=== PATIENT | male | born 1945 | race Caucasian/White ===

== ENCOUNTER 2020-04-16 10:54 | Emergency (ER) | payer MEDICARE, BC ==
[2020-04-16] MEDS ORDERED: predniSONE 20 MG Tab PO ONE (11:55)
[2020-04-16] MEDS ORDERED: Ketorolac 10 MG Tab PO ONE (11:55)
--- NOTE | 2020-04-16 12:03 | EDM.PDOC ---
ED HPI GENERAL MEDICAL PROBLEM - General Chief Complaint: Upper Extremity Injury/Pain Stated Complaint: ARM PAIN/SWELLING Time Seen by Provider: 04/16/20 11:23 Source of Information: Reports: Patient History Limitations: Reports: No Limitations - History of Present Illness INITIAL COMMENTS - FREE TEXT/NARRATIVE: Two week history of gradually worsening right forearm/wrist pain. More swollen around hand/fingers today. 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 Denies any other change in activity. No injuries/cuts/insect bites. Has not had this issue before. Sometimes gets a little numbness in tips of 3rd and 4th finger. Letting arm hand down at his side at rest improves discomfort. Ice helps with swelling and pain. Has not taken any NSAIDs or Tylenol. - Related Data Allergies Allergy/AdvReac Type Severity Reaction Status Date / Time aspirin Allergy Abdominal Verified 04/16/20 10:55 Pain Penicillins Allergy Giddiness Verified 04/16/20 10:55 Home Meds: Home Meds Tamsulosin HCl [Flomax] 0.4 mg PO BEDTIME 04/16/20 [History] Past Medical History Genitourinary History: Reports: BPH Endocrine/Metabolic History: Reports: Obesity/BMI 30+ Social & Family History - Tobacco Use Smoking Status *Q: Unknown Ever Smoked Review of Systems - Review of Systems Review Of Systems: Comprehensive ROS is negative, except as noted in HPI. ED EXAM, GENERAL - Physical Exam Exam: See Below Exam Limited By: No Limitations General Appearance: Alert, WD/WN, No Apparent Distress Eye Exam: Bilateral Eye: EOMI, PERRL Ears: Hearing Grossly Normal Throat/Mouth: Normal Lips, Normal Voice, No Airway Compromise Head: Atraumatic, Normocephalic Neck: Supple Respiratory/Chest: No Respiratory Distress Peripheral Pulses: 2+: Radial (R) Extremities: Other (Exam of hands shows mild swelling of right hand compared to left. Thumb,2nd/3rd digit slightly more swollen than 4th and 5th. Skin intact. No drainage/blisters/rash. Range of motion in affected hand/fingers/wrist intact. Mild swelling medial wrist that does not extend upwards to involve rest of forearm. Tender with palpation over soft tissue/extensor tendons of right hand that reproduces patient's pain complaint. No crepitus noted in tendons when patient moves fingers/wrist. ) Neurological: Alert, Oriented, Normal Cognition, No Motor/Sensory Deficits Psychiatric: Normal Affect, Normal Mood Skin Exam: Warm, Dry, Intact, Normal Color. No: Ecchymosis, Erythema, Increased Warmth, Lymphangitis, Mottled, Pallor, Petechiae, Rash, Wound/Incision , Zoster-Like Rash Course - Vital Signs Last Recorded V/S: Last Vital Signs Temp 36.9 C 04/16/20 10:55 Pulse 74 04/16/20 10:55 Resp 18 04/16/20 10:55 BP 146/69 H 04/16/20 10:55 Pulse Ox 95 04/16/20 10:55 - Orders/Labs/Meds Orders: Active Orders 24 hr Category Date Time Status Wrist 2V Rt [CR] Stat Exams 04/16/20 10:56 Ordered Labs: Laboratory Tests 04/16/20 Range/Units 11:05 WBC 8.6 (4.0-10.2) K/uL RBC 4.65 (4.33-5.41) M/uL Hgb 14.1 (13.1-16.8) g/dL Hct 43.6 (39.0-49.0) % MCV 93.8 (84.0-98.0) fL MCH 30.3 (28.2-33.3) pg MCHC 32.3 (31.7-36.0) g/dL RDW 12.9 (11.2-14.1) % Plt Count 257 (150-350) K/uL Neut % (Auto) 72.9 (45.0-80.0) % Lymph % (Auto) 14.9 (10.0-50.0) % [place] % (Auto) 7.6 (2.0-14.0) % Eos % (Auto) 4.3 (0.0-5.0) % Baso % (Auto) 0.3 (0.0-2.0) % Neut # (Auto) 6.29 (1.40-7.00) K/uL Lymph # (Auto) 1.29 (0.50-3.50) K/uL [place] # (Auto) 0.66 (0.00-1.00) K/uL Eos # (Auto) 0.37 (0.00-0.50) K/uL Baso # (Auto) 0.03 (0.00-0.20) K/uL Meds: Medications Discontinued Medications Generic Name Dose Route Start Last Admin Trade Name Linda PRN Reason Stop Dose Admin Ketorolac Tromethamine 10 mg 04/16/20 11:55 Toradol PO 04/16/20 11:56 ONETIME ONE Prednisone 60 mg 04/16/20 11:55 Prednisone PO 04/16/20 11:56 ONETIME ONE - Re-Assessments/Exams Free Text/Narrative Re-Assessment/Exam: 04/16/20 12:14 Xray of wrist unremarkable. CBC showed normal WBC. Suspect overuse injury/ tendonitis. Does not appear consistent with infection/clot or vascular issue. US unavailable at our site today. Patient did not wish to go to [place] today to formally rule out blood clot. Does not appear to be consistent with gout based on history and exam. Patient has appointment tomorrow with [facility] for his knees. It was recommended that he have them look at the wrist tomorrow and decide if further imaging is needed and discuss further treatment options. He declined wrist brace. 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 Single dose of Prednisone and Toradol PO ordered. Ice/rest/Tylenol can be used to help with discomfort. He was advised to use caution with NSAIDS given his age and potential renal issues. He does not usually use that class of medication as it upsets his stomach. No additional Toradol was dispensed. Patient agreeable with plan. Departure - Departure Time of Disposition: 11:56 Disposition: Home, Self-Care 01 Condition: Good Clinical Impression: Right wrist pain - Discharge Information *PRESCRIPTION DRUG MONITORING PROGRAM REVIEWED*: Not Applicable *COPY OF PRESCRIPTION DRUG MONITORING REPORT IN PATIENT BRIDGET: Not Applicable Instructions: Wrist Pain, Adult, [id number] Referrals: Tali Nash PA [Primary Care Provider] - Forms: ED Department Discharge Additional Instructions: Avoid grabbing/lifting with the affected hand. Ice/rest to help with pain and sweling. We gave you medication to help with the inflammation and pain today. Have Ortho evaluate it at your appointment tomorrow and see what they recommend for additional treatment. If you start to notice swelling worsening up the forearm then you will need to get rechecked. Follow up otherwise as needed if you have additional problems/ concerns. OK to use Tylenol to help with the discomfort. Sepsis Event Note - Evaluation Sepsis Screening Result: No Definite Risk - Focused Exam Vital Signs: Vital Signs Temp Pulse Resp BP Pulse Ox 04/16/20 10:55 36.9 C 74 18 146/69 H 95 Date Exam was Performed: 04/16/20 Time Exam was Performed: 12:05 - My Orders Last 24 Hours: My Active Orders 04/16/20 10:56 Wrist 2V Rt [CR] Stat - Assessment/Plan Last 24 Hours: My Active Orders 04/16/20 10:56 Wrist 2V Rt [CR] Stat
== END 2020-04-16 12:10 | disposition home or self-care (01) ==
LOC: LL.ED 10:54
DX: M25.531 Pain in right wrist (principal); N40.0 Benign prostatic hyperplasia without lower urinary tract symptoms; E66.9 Obesity, unspecified; Z88.8 Allergy status to other drugs, medicaments and biological substances; Z88.0 Allergy status to penicillin
CPT/HCPCS: 36415; 73100-RT; 85025; 99283; A9270-GY; J7512

== ENCOUNTER 2020-06-08 09:58 | Observation (INO) | payer MEDICARE, BC ==
[2020-06-08] MEDS ORDERED: Ondansetron 4 MG/2 ML SDV IVPUSH ONE (10:13)
[2020-06-08] MEDS ORDERED: Famotidine 20 MG/2 ML SDV IVPUSH ONE (10:13)
[2020-06-08] MEDS ORDERED: Pantoprazole 40 MG Vial IVPUSH ONE (10:13)
--- NOTE | 2020-06-08 10:13 | EDM.PDOC ---
ED HPI GENERAL MEDICAL PROBLEM - General Chief Complaint: Gastrointestinal Problem Stated Complaint: constipation Time Seen by Provider: 06/08/20 10:10 Source of Information: Reports: Patient, Family (), Old Records ([facility] chart/EMR) History Limitations: Reports: No Limitations - History of Present Illness INITIAL COMMENTS - FREE TEXT/NARRATIVE: The patient was brought to the emergency room via private automobile by his for severe exacerbation of his previous chronic constipation after right total knee arthroplasty on 06/04/20 at . He was placed on postoperative narcotics, which he did discontinue yesterday. Home health is in place with patient receiving a Fleet's enema and a half a bottle of magnesium citrate yesterday with no results. The patient did have a normal bowel movement on 06/03 prior to his surgery with no bowel movement since that time. Patient does have some intermittent nausea, including an emesis yesterday evening with last emesis at about 8:30 a.m. this morning. He complains of diffuse 4/10 abdominal cramping with borderline heartburn type symptoms. No recent history of hematemesis, diarrhea, melena, gross hematochezia, or any food intolerance, including fatty foods, etc.. He denies any gross hematuria, colic, or other UTI symptoms. The patient also denies any recent fever, cough, wheezing, dyspnea, etc.. The patient denies any chest pain/pressure, heart flutter, dizziness, orthostasis, orthopnea, diaphoresis, paresthesias, recent decreased exercise tolerance, or any other anginal-type symptoms. Onset: Gradual Onset Date: 06/07/20 Duration: Constant, Getting Worse. No: Resolved Prior to Arrival Location: Reports: Abdomen. Denies: Head, Neck, Chest, Back, Pelvis, Upper Extremity, Left, Upper Extremity, Right, Radiates to Quality: Reports: Pressure, Same as Previous Episode Severity: Mild Improves with: Reports: None Worsens with: Reports: None Context: Reports: Other (As above). Denies: Sick Contact, Trauma Associated Symptoms: Reports: Nausea/Vomiting. Denies: Confusion, Chest Pain, Cough, Diaphoresis, Fever/Chills, Headaches, Loss of Appetite, Malaise, Rash, Seizure, Shortness of Breath, Syncope, Weakness Treatments [employer]: Reports: Other Medication(s) (As above) Abdomen Pain Score (Numeric/FACES): 4 - Related Data Allergies Allergy/AdvReac Type Severity Reaction Status Date / Time aspirin AdvReac Abdominal Verified 06/08/20 11:07 Pain Penicillins AdvReac Giddiness Verified 06/08/20 11:07 Home Meds: Home Meds Tamsulosin HCl [Flomax] 0.4 mg PO BEDTIME 04/16/20 [History] Acetaminophen [Acetaminophen Extra Strength] 2 tab PO Q6HR PRN 06/08/20 [History] Apixaban [Eliquis] 2.5 mg PO BID 06/08/20 [History] Celecoxib [CeleBREX] 200 mg PO DAILY 06/08/20 [History] Cetirizine [ZyrTEC] 1 tab PO DAILY 06/08/20 [History] Magnesium Citrate [Citrate of Magnesia] 30 ml PO DAILY 06/08/20 [History] Non-Formulary Medication [NF Drug] 1 injection SUBCUT ASDIRECTED 06/08/20 [History] Sennosides/Docusate Sodium [Senna Plus 8.6-50 mg Tablet] 1 tab PO BID 06/08/20 [History] Sulfamethoxazole/Trimethoprim [Sulfamethoxazole-Tmp Ds Tablet] 1 tab PO BID 06/08/20 [History] oxyCODONE HCl [Roxicodone] 1 - 2 tab PO Q4HR PRN 06/08/20 [History] Past Medical History HEENT History: Reports: Allergic Rhinitis, Hard of Hearing, Impaired Vision, Other (See Below). Denies: Cataract, Glaucoma, Macular Degeneration, Otitis Media Other HEENT History: He wears glasses. Severe bilateral presbycusis with suboptimal bilateral hearing aide therapy. Cardiovascular History: Reports: High Cholesterol. Denies: Afib, Aneurysm, Arrhythmia, Blood Clots/VTE/DVT, CAD, Cardiomyopathy, Heart Murmur, Hypertension, FL, PVD, Syncope Respiratory History: Reports: Intubation, Previous. Denies: Asthma, Bronchitis, Recurrent, COPD, Intubation, Difficult, PE, Pneumonia, Recurrent, Pneumothorax, Sleep Apnea, TB Gastrointestinal History: Reports: Chronic Constipation, Hemorrhoids. Denies: Bowel Obstruction, Celiac Disease, Cholelithiasis, Colon Polyp, Fecal Incontin ence, Gastritis, GERD, Hepatitis, Inflammatory Bowel Disease, Irritable Bowel Syndrome, Jaundice, Pancreatitis, PUD Genitourinary History: Reports: BPH. Denies: Acute Renal Failure, Chronic Renal Insuffiency, Renal Calculus, Retention, Urinary, STD, Urinary Incontinence, UTI, Recurrent Musculoskeletal History: Reports: Arthritis, Back Pain, Chronic, Fracture, Osteoarthritis, Other (See Below). Denies: Amputation, Gout, Neck Pain, Chronic, RA, SLE Other Musculoskeletal History: Phalangeal fracture of digit #1 of the left foot in his 30s. Previous left ankle fracturedate unknown. 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 Neurological History: Reports: None. Denies: Cerebral Aneurysms, Concussion, CVA, Headaches, Chronic, Head Trauma, Migraines, MS, Neuropathy, Peripheral, Parkinson's, Seizure, TIA Psychiatric History: Reports: None. Denies: Abuse, Victim of, ADD, ADHD, Addiction, Psych Hospitalization(s), Psychosis, PTSD, Suicide Attempt, Suicidal Ideation Endocrine/Metabolic History: Reports: Diabetes, Type II, Obesity/BMI 30+, Other (See Below). Denies: Diabetes, Type I, Diabetes Mellitus, Type 3c, Hypothyroidism, IDDM Other Endocrine/Metabolic History: Prediabetes with no current therapy. Hematologic History: Reports: None. Denies: Anemia, Blood Transfusion(s), Iron Deficiency Immunologic History: Reports: None. Denies: AIDS, HIV, SLE Oncologic (Cancer) History: Reports: None. Denies: Basal Cell Carcinoma, Colon, Hodgkin's Lymphoma, Leukemia, Lymphoma, Malignant Melanoma, Non-Hodgkin's Lymphoma, Prostate, Squamous Cell Carcinoma Dermatologic History: Reports: Venous Stasis Dermatitis. Denies: Eczema, Psoriasis - Infectious Disease History Infectious Disease History: Reports: Chicken Pox, Measles, Mumps. Denies: C- Difficile, Helicobacter Pylori, Meningitis, Mononucleosis, MRSA, Pertussis (Whooping Cough), Rheumatic Fever, Rubella, Scarlet Fever, Shingles, TB, VRE - Past Surgical History Head Surgeries/Procedures: Reports: None HEENT Surgical History: Reports: Oral Surgery, Other (See Below). Denies: Adenoidectomy, Cataract Surgery, Eye Surgery, Laser Surgery, LASIK, Myringotomy w Tube(s), Naso-Sinus Surgery, Tonsillectomy Other HEENT Surgeries/Procedures: Complete teeth extraction. Cardiovascular Surgical History: Reports: None. Denies: Varicose Respiratory Surgical History: Reports: None. Denies: Thoracentesis GI Surgical History: Reports: Colonoscopy, Other (See Below). Denies: Appendectomy, Cholecystectomy, EGD, Hernia, Abdominal, Hernia, Inguinal, Hernia Repair/Other, Polypectomy Other GI Surgeries/Procedures: Colonoscopy on 03/11/12. Male Surgical History: Reports: None. Denies: Circumcision, TURP- Transurethral Resection of Prostate, Vasectomy Endocrine Surgical History: Reports: None. Denies: Thyroid Biopsy Neurological Surgical History: Reports: None. Denies: C-Spine, Discectomy, Laminectomy, Lumbar Spine, Sacral Spine, Spinal Fusion, Thoracic Spine, Vertebroplasty Musculoskeletal Surgical History: Reports: None, Joint Replacement, Knee Replacement, Other (See Below). Denies: Arthroscopic Procedure, Carpal Tunnel, Ganglion Cyst, ORIF, Shoulder Surgery Other Musculoskeletal Surgeries/Procedures:: Right total knee arthroplasty on 06/04/20. Oncologic Surgical History: Reports: None Dermatological Surgical History: Reports: None - Past Imaging History Past Imaging History: Reports: DEXA Scan (10/12/12.), MRI (Lumbar spine on 10/12/12.) Social & Family History - Family History HEENT: Reports: None. Denies: Glaucoma, Macular Degeneration, Retinal Detachment Cardiac: Reports: Blood Clots/VTE/DVT, CAD, FL, Other (See Below). Denies: Afib, Aneurysm, Arrhythmia, Bypass, Cardiomyopathy, Heart Failure, Heart Murmur, High Cholesterol, Hypertension, Pacemaker, PVD/COD, Syncope Other Cardiac Family History: Father with fatal FL in his 80s. Mother with fatal DVT versus PE likely secondary to her breast cancer at age 75. Respiratory: Reports: PE, Other (See Below). Denies: Asthma, COPD, Pneumothorax, Sleep Apnea Other Respiratory Family Hisory: Mother with probable fatal PE as above. GI: Reports: None. Denies: Celiac Disease, Cholelithiasis, Colon Polyps, GERD, GI bleed, Inflammatory Bowel Disease, Irritable Bowel Syndrome, PUD : Reports: None. Denies: Dialysis, Renal Calculus, Renal Disease/Insufficiency OBGYN: Reports: None. Denies: Endometriosis, Recurrent Spontaneous Musculoskeletal: Reports: None. Denies: Gout, RA, SLE Neurological: Reports: None, Other (See Below). Denies: Alzheimers Disease, Cerebral Aneurysms, CVA, Dementia, Migraines, MS, Parkinson's, Seizure, TIA Other Neurological Family History: Organic brain syndrome in maternal aunt and maternal uncle. Psychiatric: Reports: None. Denies: Abuse, Victim of, ADD, ADHD, Anxiety, Depression, Psych Hospitalization(s), PTSD, Suicide Attempt Endocrine/Metabolic: Reports: Diabetes, type II, IDDM, Other (See Below). Den ies: Diabetes, Gestational, Diabetes, Type I, Diabetes Mellitus, Type 3c, Hypothyroidism Other Endocrine/Metabolic Family History: Father with IDDM. Hematologic: Reports: None. Denies: Anemia, SLE Immunologic: Reports: None. Denies: AIDS, HIV, SLE Dermatologic: Reports: None. Denies: Eczema, Psoriasis Oncologic: Reports: Breast, Other (See Below). Denies: Colon, Hodgkin's Lymphoma, Leukemia, Lymphoma, Non-Hodgkin's Lymphoma, Prostate, Skin Other Oncologic Family History: Mother with breast cancer at about age 75. Maternal aunt with fatal breast cancer in her 70s. - Tobacco Use Smoking Status *Q: Current Every Day Smoker Tobacco Use Within Last Twelve Months: Snuff/Dip Years of Tobacco use: 46 Packs/Tins Daily: 0.4 Packs/Tins Daily Comment: Started chewing tobacco at age 28 with average use of 1/3 cans per day with previous cigarette use. Used Tobacco, but Quit: No Smoking Cessation Information Provided To Patient: Yes Second Hand Smoke Exposure: No Second Hand Smoke Education Provided: No - Caffeine Use Caffeine Use: Reports: Coffee (One cup per day), Soda (Very occasional). Denies: Energy Drinks, Tea - Alcohol Use Alcohol Use History: Yes Days Per Week of Alcohol Use: 2 Number of Drinks Per Day: 6 Number of Drinks Per Day Comment: Usually beer. No previous DWIs, problems with alcohol abuse, etc. Total Drinks Per Week: 12 - Recreational Drug Use Recreational Drug Use: No Drug Use in Last 12 Months: No Recreational Drug Type: Denies: Amphetamines (Speed), Cocaine, Heroin, Inhalants (Glues, Solvents, Aerosols), LSD (Acid), Marijuana/Hashish, Methamphetamine, Morphine, Oxycodone - Living Situation & Occupation Living situation: Reports: (1999, stepchildren), with Family () Occupation: Employed ([employer]) ED ROS GENERAL - Review of Systems Review Of Systems: Comprehensive ROS is negative, except as noted in HPI. ED EXAM, GI/ABD - Physical Exam Exam: See Below Exam Limited By: No Limitations General Appearance: Alert, WD/WN, Moderate Distress Eyes: Bilateral: Normal Appearance (No nystagmus. Patient wearing glasses), EOMI Ears: Normal External Exam, Hearing Loss (Suboptimal bilateral hearing aid therapy) Nose: Normal Inspection, Normal Mucosa, No Blood Throat/Mouth: Normal Inspection, Normal Lips, Normal Gums, Normal Oropharynx, Normal Voice, No Airway Compromise. No: Normal Teeth (Complete dentures uppers and lowers), Dysphagia, Perioral Cyanosis Head: Atraumatic, Normocephalic. No: Facial Swelling, Facial Tenderness, Sinus Tenderness Neck: Supple, Non-Tender, Full Range of Motion, Carotid Bruit (Mild bilateral carotid bruits). No: Lymphadenopathy (L), Lymphadenopathy (R), Thyromegaly Respiratory/Chest: No Respiratory Distress, Lungs Clear, Normal Breath Sounds, No Accessory Muscle Use, Chest Non-Tender. No: Pleural Rub, Retractions Cardiovascular: Normal Peripheral Pulses, Regular Rate, Rhythm, No Gallop, No JVD, No Murmur, No Rub. No: No Edema (Dependent edema as below), Gallop/S3, Gallop/S4, Friction Rub GI/Abdominal Exam: Normal Bowel Sounds, No Organomegaly, No Distention, No Abnormal Bruit, No Mass, Tender (Mild diffuse palpation pain), Other (Obese). No: Guarding, Rigid, Rebound (Male) Exam: Deferred Rectal (Males) Exam: Normal Rectal Tone, BPH (Moderate nonnodular), Heme - Stool, Hemorrhoids (Grade 2 internal/external). No: Fecal Impaction, Prostate Nodule, Rectal Fissure, Tenderness Back Exam: Normal Inspection, Full Range of Motion. No: CVA Tenderness (L), CVA Tenderness (R), Muscle Spasm Extremities: Pedal Edema (+1 bilateral pedal/pretibial edema) greater than left with moderate venous stasis dermatitis in the anterior tibial regions bilaterally), Joint Swelling (Normal postoperative right knee), Leg Pain (Normal postoperative in the right knee with decreased range of motion and dry dressing in place), Limited Range of Motion (Right knee as above). No: Los's Sign, Increased Warmth, Redness Neurological: Alert, Oriented, CN II-XII Intact, Normal Cognition, Normal Reflexes (Negative Babinski's), No Motor/Sensory Deficits. No: Normal Gait (Secondary to knee surgery) Psychiatric: Normal Affect, Normal Mood Skin Exam: Wound/Incision (As above), Other (Venous stasis dermatitis as above). No: Diaphoretic, Erythema, Increased Warmth, Petechiae Lymphatic: No Adenopathy Course - Vital Signs Last Recorded V/S: Last Vital Signs Temp 36.5 C 06/08/20 10:00 Pulse 92 06/08/20 10:00 Resp 18 06/08/20 10:00 BP 146/76 H 06/08/20 10:00 Pulse Ox 94 L 06/08/20 10:00 Vital Signs - 24 hr 06/08/20 10:00 Temperature [ 36.5 C Temporal] Pulse, 92 Peripheral [ Pulse Oximetry] Respiratory 18 Rate Blood Pressure 146/76 H [Right Upper Arm] O2 Sat by Pulse 94 L Oximetry - Orders/Labs/Meds Orders: Active Orders 24 hr Category Date Time Status Peripheral IV Care [RC] . DIRECTED Care 06/08/20 10:14 Ordered Nothing Per Oral Diet [DIET] Diet 06/08/20 Breakfast Ordered Abdomen Series w Chest 1V [CR] Stat Exams 06/08/20 10:14 Ordered Sodium Chloride 0.9% [Saline Flush] Med 06/08/20 10:13 Ordered 10 ml FLUSH ASDIRECTED PRN Obtain Past Medical Record [OM.PC] Urgent Oth 06/08/20 10:14 Ordered Peripheral IV Insertion Adult [OM.PC] Stat Oth 06/08/20 10:14 Ordered Resuscitation Status Stat Resus Stat 06/08/20 10:13 Ordered Medication Orders Sodium Chloride (Saline Flush) 10 ml FLUSH ASDIRECTED PRN PRN Reason: Keep Vein Open Last Admin: 06/08/20 10:30 Dose: 10 ml Documented by: Admin: 06/08/20 10:18 Dose: 10 ml Documented by: CARMELITA Labs: Laboratory Tests 06/08/20 06/08/20 06/08/20 Range/Units 10:25 10:25 10:25 WBC 13.2 H (4.0-10.2) K/uL RBC 3.95 L (4.33-5.41) M/uL Hgb 12.3 L D (13.1-16.8) g/dL Hct 37.6 L (39.0-49.0) % MCV 95.2 (84.0-98.0) fL MCH 31.1 (28.2-33.3) pg MCHC 32.7 (31.7-36.0) g/dL RDW 13.9 (11.2-14.1) % Plt Count 332 D (150-350) K/uL Neut % (Auto) 81.5 H (45.0-80.0) % Lymph % (Auto) 8.6 L (10.0-50.0) % Converse % (Auto) 9.0 (2.0-14.0) % Eos % (Auto) 0.7 (0.0-5.0) % Baso % (Auto) 0.2 (0.0-2.0) % Neut # (Auto) 10.73 H (1.40-7.00) K/uL Lymph # (Auto) 1.13 (0.50-3.50) K/uL Converse # (Auto) 1.18 H (0.00-1.00) K/uL Eos # (Auto) 0.09 (0.00-0.50) K/uL Baso # (Auto) 0.02 (0.00-0.20) K/uL PT 10.0 (9.5-12.0) SEC INR 1.0 APTT 27.2 (24.5-32.8) SEC Sodium (136-145) mmol/L Potassium (3.5-5.1) mmol/L Chloride (98-107) mmol/L Carbon Dioxide (21.0-32.0) mmol/L BUN (7-18) mg/dL Creatinine (0.51-1.17) mg/dL Est Cr Clr Drug Dosing Estimated GFR (MDRD) mL/min Glucose (74-106) mg/dL Lactic Acid (0.4-2.0) mmol/L Uric Acid (2.6-7.2) mg/dL Calcium (8.5-10.1) mg/dL Magnesium (1.8-2.4) mg/dL Total Bilirubin (0.2-1.0) mg/dL Direct Bilirubin (0.0-0.2) mg/dL Indirect Bilirubin mg/dL AST (15-37) U/L ALT (12-78) U/L Alkaline Phosphatase (46-116) IU/L Total Protein (6.4-8.2) g/dL Albumin (3.4-5.0) g/dL Amylase 17 L (25-115) U/L Lipase (73-393) U/L 06/08/20 06/08/20 06/08/20 Range/Units 10:25 10:25 10:25 WBC (4.0-10.2) K/uL RBC (4.33-5.41) M/uL Hgb (13.1-16.8) g/dL Hct (39.0-49.0) % MCV (84.0-98.0) fL MCH (28.2-33.3) pg MCHC (31.7-36.0) g/dL RDW (11.2-14.1) % Plt Count (150-350) K/uL Neut % (Auto) (45.0-80.0) % Lymph % (Auto) (10.0-50.0) % Converse % (Auto) (2.0-14.0) % Eos % (Auto) (0.0-5.0) % Baso % (Auto) (0.0-2.0) % Neut # (Auto) (1.40-7.00) K/uL Lymph # (Auto) (0.50-3.50) K/uL Converse # (Auto) (0.00-1.00) K/uL Eos # (Auto) (0.00-0.50) K/uL Baso # (Auto) (0.00-0.20) K/uL PT (9.5-12.0) SEC INR APTT (24.5-32.8) SEC Sodium 138 (136-145) mmol/L Potassium 4.0 (3.5-5.1) mmol/L Chloride 98 (98-107) mmol/L Carbon Dioxide 28.4 (21.0-32.0) mmol/L BUN 16 (7-18) mg/dL Creatinine 0.87 (0.51-1.17) mg/dL Est Cr Clr Drug Dosing TNP Estimated GFR (MDRD) > 60 mL/min Glucose 189 H (74-106) mg/dL Lactic Acid 2.0 (0.4-2.0) mmol/L Uric Acid 5.1 (2.6-7.2) mg/dL Calcium 9.0 (8.5-10.1) mg/dL Magnesium 2.0 (1.8-2.4) mg/dL Total Bilirubin 1.4 H 1.4 H (0.2-1.0) mg/dL Direct Bilirubin 0.3 H (0.0-0.2) mg/dL Indirect Bilirubin 1.1 mg/dL AST 22 (15-37) U/L ALT 30 (12-78) U/L Alkaline Phosphatase 52 (46-116) IU/L Total Protein 7.2 (6.4-8.2) g/dL Albumin 2.9 L (3.4-5.0) g/dL Amylase (25-115) U/L Lipase 58 L (73-393) U/L Meds: Medications Generic Name Dose Route Start Last Admin Trade Name Freq PRN Reason Stop Dose Admin Sodium Chloride 10 ml 06/08/20 10:13 06/08/20 10:30 Saline Flush FLUSH 10 ml ASDIRECTED PRN Administration Keep Vein Open Discontinued Medications Generic Name Dose Route Start Last Admin Trade Name Freq PRN Reason Stop Dose Admin Famotidine 40 mg 06/08/20 10:13 06/08/20 10:18 Pepcid IVPUSH 06/08/20 10:14 40 mg ONETIME ONE Administration Ondansetron HCl 4 mg 06/08/20 10:13 06/08/20 10:18 Zofran IVPUSH 06/08/20 10:14 4 mg ONETIME ONE Administration Pantoprazole Sodium 40 mg 06/08/20 10:13 06/08/20 10:18 Protonix Iv IVPUSH 06/08/20 10:14 40 mg ONETIME ONE Administration - Radiology Interpretation Free Text/Narrative:: Acute abdominal x-rays are somewhat suboptimal secondary to patient's habitus and recent surgery with overall poor inspiratory film. Possible mild cardiomegaly and COPD changes with no pneumothorax, pulmonary infiltrates, CHF, etc. Moderate diffuse stool with moderate nonspecific diffuse bowel gaseous distention with no free air, ileus, obstruction, etc.. Telephone consultation from the radiologist at [facility] in [place] possible developing po stoperative ileus by his review. Departure - Departure Time of Disposition: 11:30 Disposition: Refer to Observation Condition: Good Clinical Impression: Abdominal pain, Constipation, Hyperlipidemia, Osteoarthritis, Diabetes mellitus, Tobacco abuse counseling, Anemia, Hyperbilirubinemia, Hypoalbuminemia - Discharge Information *PRESCRIPTION DRUG MONITORING PROGRAM REVIEWED*: Not Applicable *COPY OF PRESCRIPTION DRUG MONITORING REPORT IN PATIENT BRIDGET: Not Applicable Referrals: Tali Nash PA [Primary Care Provider] - Forms: ED Department Discharge Care Plan Goals: See plan. Sepsis Event Note (ED) - Focused Exam Vital Signs: Vital Signs Temp Pulse Resp BP Pulse Ox 06/08/20 10:00 36.5 C 92 18 146/76 H 94 L - Problem List & Annotations (1) Abdominal pain SNOMED Code(s): 99914655 Code(s): R10.9 - UNSPECIFIED ABDOMINAL PAIN Status: Acute Priority: High Onset Date: ~06/07/20 Annotation/Comment:: Significant exacerbation of his previous note chronic constipation secondary to postoperative narcotic use, which has been discontinued as above. High-dose IV Pepcid and IV Protonix were given as GI prophylaxis with no previous history of GERD, etc. Note mild leukocytosis and postoperative anemia with normal lactic acid level. Various therapeutic options were discussed with the patient and his , who are requesting treatment of the patient in observation status for further treatment. Initiate IV Rocephin and IV Flagyl shortly after admission. Abdominal checks with vitals. Questionable beginning postoperative ileus as above. Qualifiers: Abdominal location: generalized Qualified Code(s): R10.84 - Generalized abdominal pain (2) Constipation SNOMED Code(s): 74647566 Code(s): K59.00 - CONSTIPATION, UNSPECIFIED Status: Chronic Priority: Medium Annotation/Comment:: As above. Magnesium citrate/MiraLAX on admission with soapsuds enema depending on his clinical course. Qualifiers: Constipation type: slow transit constipation Qualified Code(s): K59.01 - Slow transit constipation (3) Diabetes mellitus SNOMED Code(s): 94473546 Code(s): E11.9 - TYPE 2 DIABETES MELLITUS WITHOUT COMPLICATIONS Status: Chronic Priority: Medium Annotation/Comment:: No current medical therapy. Glycosylated hemoglobin in the a.m. Weight loss in moderation advisable. Continue to observe closely by his regular provider. Qualifiers: Diabetes mellitus type: type 2 Diabetes mellitus senior living insulin use: without termite treater use Diabetes mellitus complication status: without complication Qualified Code(s): E11.9 - Type 2 diabetes mellitus without complications (4) Hyperlipidemia SNOMED Code(s): 51848112 Code(s): E78.5 - HYPERLIPIDEMIA, UNSPECIFIED Status: Chronic Priority: Medium Annotation/Comment:: Weight loss in moderation advisable. Continue to observe closely by his regular provider. Qualifiers: Hyperlipidemia type: unspecified Qualified Code(s): E78.5 - Hyperlipidemia, unspecified (5) Osteoarthritis SNOMED Code(s): 252810832 Code(s): M19.90 - UNSPECIFIED OSTEOARTHRITIS, UNSPECIFIED SITE Status: Chronic Priority: Medium Annotation/Comment:: Note status post right total knee arthroplasty on 06/04/20 with otherwise stable arthritic complaints. Qualifiers: Osteoarthritis location: multiple joints Osteoarthritis type: primary Qualified Code(s): M89.49 - Other hypertrophic osteoarthropathy, multiple sites (6) Tobacco abuse counseling SNOMED Code(s): 344721642, 370821043, 449345871 Code(s): Z71.6 - TOBACCO ABUSE COUNSELING Status: Chronic Priority: Medium Annotation/Comment:: The patient was counseled on chewing tobacco complications and the use of Nicorette gum with tobacco cessation strongly encouraged with information to be provided at time of discharge. (7) Anemia SNOMED Code(s): 303197378 Code(s): D64.9 - ANEMIA, UNSPECIFIED Status: Acute Priority: Medium Onset Date: 06/08/20 Annotation/Comment:: Mild postoperative anemia. No evidence of acute GI bleed. Observe for now. No blood transfusion required after recent knee surgery. Qualifiers: Anemia type: other cause Other causes of anemia: other cause, not classified Qualified Code(s): D64.89 - Other specified anemias (8) Hyperbilirubinemia SNOMED Code(s): 47696832 Code(s): E80.6 - OTHER DISORDERS OF BILIRUBIN METABOLISM Status: Acute Priority: Medium Onset Date: 06/08/20 Annotation/Comment:: Gilbert's syndrome. Observe for now. (9) Hypoalbuminemia SNOMED Code(s): 431456800 Code(s): E88.09 - OTH DISORDERS OF PLASMA-PROTEIN METABOLISM, NEC Status: Acute Priority: Medium Onset Date: 06/08/20 Annotation/Comment:: Observe for now. Consider high protein Glucerna supplements as snacks, however note current obesity. - Problem List Review Problem List Initiated/Reviewed/Updated: Yes - My Orders Last 24 Hours: My Active Orders 06/08/20 Breakfast Nothing Per Oral Diet [DIET] 06/08/20 10:13 Sodium Chloride 0.9% [Saline Flush] 10 ml FLUSH ASDIRECTED PRN Resuscitation Status Stat 06/08/20 10:14 Peripheral IV Care [RC] . DIRECTED Abdomen Series w Chest 1V [CR] Stat Obtain Past Medical Record [OM.PC] Urgent Peripheral IV Insertion Adult [OM.PC] Stat - Assessment/Plan Admission H&P: Please use this note as an admission H&P Last 24 Hours: My Active Orders 06/08/20 Breakfast Nothing Per Oral Diet [DIET] 06/08/20 10:13 Sodium Chloride 0.9% [Saline Flush] 10 ml FLUSH ASDIRECTED PRN Resuscitation Status Stat 06/08/20 10:14 Peripheral IV Care [RC] . DIRECTED Abdomen Series w Chest 1V [CR] Stat Obtain Past Medical Record [OM.PC] Urgent Peripheral IV Insertion Adult [OM.PC] Stat Assessment:: As above Plan: As above. Extensive precautions were given to the patient and his , who are in agreement with the treatment plan. The patient's condition is stable enough f or observation status and general supervision.
[2020-06-08] MEDS: Sodium Chloride 0.9% 10 ML Syringe FLUSH PRN ×3 (10:18→22:23)
[2020-06-08 10:50] LABS: PTT,PARTIAL THROMBOPLSTIN TIME 27.2 SEC (24.5-32.8)
[2020-06-08 10:59] LABS: CHLORIDE,CL 98 mmol/L (98-107); SODIUM,NA 138 mmol/L (136-145)
[2020-06-08] MEDS ORDERED: Ondansetron 4 MG/2 ML SDV IVPUSH PRN (11:38)
[2020-06-08] MEDS ORDERED: Magnesium Citrate Solution 296 ML Bottle PO ONE (11:42)
[2020-06-08] MEDS ORDERED: Polyethylene Glycol 3350 Powder 17 GM Packet PO ONE (11:42)
[2020-06-08] MEDS ORDERED: Non-Formulary Medication 1 Each SUBCUT SCH (11:45)
[2020-06-08] MEDS: cefTRIAXone 1 GM in Sodium Chloride 0.9% 100 ML IV SCH (14:00)
[2020-06-08] MEDS: Sodium Chloride 0.9% 10 ML Syringe FLUSH SCH ×2 (14:01→19:23)
[2020-06-08] MEDS: metroNIDAZOLE/Normal Saline 500 MG in Premix Bag 1 BAG IV SCH ×2 (14:35→22:24)
[2020-06-08] MEDS: Sulfamethoxazole/Trimethoprim 800-160 MG Tab PO SCH (17:30)
[2020-06-08] MEDS: Tamsulosin 0.4 MG Cap.ER PO SCH (19:23)
[2020-06-08] MEDS ORDERED: Temazepam 15 MG Cap PO PRN (20:00)
[2020-06-08] MEDS: Pantoprazole 40 MG Vial IVPUSH SCH (22:23)
[2020-06-09] MEDS: cefTRIAXone 1 GM in Sodium Chloride 0.9% 100 ML IV SCH ×2 (01:45→14:27)
[2020-06-09] MEDS: metroNIDAZOLE/Normal Saline 500 MG in Premix Bag 1 BAG IV SCH ×3 (06:20→22:54)
[2020-06-09] MEDS: Acetaminophen 325 MG Tab PO PRN ×3 (06:23→19:39)
[2020-06-09] MEDS: Sulfamethoxazole/Trimethoprim 800-160 MG Tab PO SCH ×2 (07:21→17:21)
[2020-06-09] MEDS: Cetirizine 10 MG Tab PO SCH (07:21)
[2020-06-09] MEDS: Sodium Chloride 0.9% 10 ML Syringe FLUSH SCH ×4 (07:23→19:39)
[2020-06-09 08:04] LABS: HEMOGLOBIN A1C 6.9 % (4.3-5.7)
--- NOTE | 2020-06-09 08:33 | PCM.PN ---
- General Info Date of Service: 06/09/20 Admission Dx/Problem (Free Text): 1. Abdominal pain with possible postoperative ileus 2. Chronic constipation 3. Osteoarthritis with status post recent right TKA Functional Status: Reports: Pain Controlled, Incentive Spirometry. Denies: Tolerating Diet (Nothing by mouth), Ambulating, Urinating, New Symptoms Pain Score: 1 (Normal postoperative right knee pain) - Review of Systems General: Denies: Fever (Afebrile this morning with maximum temperature of 37.3), Weakness, Fatigue, Malaise, Chills, Night Sweats, Appetite HEENT: Reports: No Symptoms. Denies: Dysphasia, Ear Pain, Eye Pain, Headaches, Post Nasal Drip, Sinus Congestion, Sore Throat, Rhinitis, Visual Changes Pulmonary: Reports: No Symptoms. Denies: Shortness of Breath, Pleuritic Chest Pain, Cough, Sputum, Hemoptysis, Wheezing Cardiovascular: Reports: Edema (Improved dependent). Denies: Chest Pain, Palpitations, Dyspnea on Exertion, Orthopnea, Lightheadedness Gastrointestinal: Reports: Constipation (No bowel movement), Flatus (Mild). Denies: Abdominal Pain, Decreased Appetite, Diarrhea, Difficulty Swallowing, Hematochezia, Melena, Nausea, Vomiting Genitourinary: Reports: No Symptoms. Denies: Dysuria, Frequency, Burning, Pain, Urgency, Incontinence, Hematuria, Retention, Flank Pain Musculoskeletal: Reports: Leg Pain (Postoperative right knee pain), Joint Pain (As above), Joint Swelling (Postoperative right knee effusion). Denies: Neck Pain, Shoulder Pain, Arm Pain, Back Pain Skin: Reports: Other (Right knee surgical site healing well with dry dressing). Denies: Diaphoresis, Bruising, Rash Neurological: Reports: Difficulty Walking (Postoperativenormal). Denies: Confusion, Headache, Numbness, Paresthesia, Tingling, Gait Disturbance Psychiatric: Reports: No Symptoms. Denies: Confusion, Depression, Anxiety, Agitation, Cravings, Hallucinations - Patient Data Vitals - Most Recent: Last Vital Signs Temp 36.6 C 06/09/20 07:18 Pulse 75 06/09/20 07:18 Resp 16 06/09/20 07:18 BP 123/70 06/09/20 07:18 Pulse Ox 95 06/09/20 07:18 Vital Signs - 24 hr 07/06/08/20 06/08/20 10:00 11:38 15:38 Temperature [ 36.5 C 36.8 C 37.1 C Temporal] Pulse, 92 87 80 Peripheral [ Pulse Oximetry] Respiratory 18 18 18 Rate Blood Pressure 146/76 H 126/62 130/59 L [Right Upper Arm] O2 Sat by Pulse 94 L 97 93 L Oximetry 06/08/20 06/09/20 06/09/20 19:24 00:00 04:00 Temperature [ 37.3 C 36.9 C 36.8 C Temporal] Pulse, 72 72 86 Peripheral [ Pulse Oximetry] Respiratory 14 16 16 Rate Blood Pressure 142/63 H 134/75 139/66 [Right Upper Arm] O2 Sat by Pulse 93 L 95 95 Oximetry 06/09/20 07:18 Temperature [ 36.6 C Temporal] Pulse, 75 Peripheral [ Pulse Oximetry] Respiratory 16 Rate Blood Pressure 123/70 [Right Upper Arm] O2 Sat by Pulse 95 Oximetry Weight - Most Recent: 133.991 kg I&O - Last 24 Hours: Intake & Output 06/08/20 06/09/20 06/09/20 22:59 06:59 14:59 Output Total 700 Balance -700 Imaging Impressions - Last 24 Hours: Acute abdominal x-rays shows progression of his possible beginning postoperative ileus with no free air. Stable elevated right hemidiaphragm with somewhat prominent aortic arch with mild centralized CHF and Aramis B lines. No pulmonary infiltrates noted. Lab Results Last 24 Hours: Laboratory Results - last 24 hr 06/08/20 06/08/20 06/08/20 Range/Units 10:25 10:25 10:25 WBC 13.2 H (4.0-10.2) K/uL RBC 3.95 L (4.33-5.41) M/uL Hgb 12.3 L D (13.1-16.8) g/dL Hct 37.6 L (39.0-49.0) % MCV 95.2 (84.0-98.0) fL MCH 31.1 (28.2-33.3) pg MCHC 32.7 (31.7-36.0) g/dL RDW 13.9 (11.2-14.1) % Plt Count 332 D (150-350) K/uL Neut % (Auto) 81.5 H (45.0-80.0) % Lymph % (Auto) 8.6 L (10.0-50.0) % [place] % (Auto) 9.0 (2.0-14.0) % Eos % (Auto) 0.7 (0.0-5.0) % Baso % (Auto) 0.2 (0.0-2.0) % Neut # (Auto) 10.73 H (1.40-7.00) K/uL Lymph # (Auto) 1.13 (0.50-3.50) K/uL [place] # (Auto) 1.18 H (0.00-1.00) K/uL Eos # (Auto) 0.09 (0.00-0.50) K/uL Baso # (Auto) 0.02 (0.00-0.20) K/uL PT 10.0 (9.5-12.0) SEC INR 1.0 APTT 27.2 (24.5-32.8) SEC Sodium (136-145) mmol/L Potassium (3.5-5.1) mmol/L Chloride (98-107) mmol/L Carbon Dioxide (21.0-32.0) mmol/L BUN (7-18) mg/dL Creatinine (0.51-1.17) mg/dL Est Cr Clr Drug Dosing Estimated GFR (MDRD) mL/min Glucose (74-106) mg/dL Hemoglobin A1c (4.3-5.7) % Lactic Acid (0.4-2.0) mmol/L Uric Acid (2.6-7.2) mg/dL Calcium (8.5-10.1) mg/dL Magnesium (1.8-2.4) mg/dL Total Bilirubin (0.2-1.0) mg/dL Direct Bilirubin (0.0-0.2) mg/dL Indirect Bilirubin mg/dL AST (15-37) U/L ALT (12-78) U/L Alkaline Phosphatase (46-116) IU/L Total Protein (6.4-8.2) g/dL Albumin (3.4-5.0) g/dL Amylase 17 L (25-115) U/L Lipase (73-393) U/L Specimen Type Urine Color Urine Appearance Urine pH (5.0-9.0) Ur Specific Felch (1.005-1.030) Urine Protein (NEGATIVE) mg/dL Urine Glucose (UA) (NEGATIVE) mg/dL Urine Ketones (NEGATIVE) mg/dL Urine Occult Blood (NEGATIVE) Urine Nitrite (NEGATIVE) Urine Bilirubin (NEGATIVE) Urine Urobilinogen (0.2-1.0) E.U./dL Ur Leukocyte Esterase (NEGATIVE) Urine RBC /HPF Urine WBC /HPF Ur Epithelial Cells /LPF Amorphous Sediment (0/HPF) /HPF Urine Bacteria (NONE TO FEW) /HPF Urine Mucus (NEGATIVE) /LPF 06/08/20 06/08/20 06/08/20 Range/Units 10:25 10:25 10:25 WBC (4.0-10.2) K/uL RBC (4.33-5.41) M/uL Hgb (13.1-16.8) g/dL Hct (39.0-49.0) % MCV (84.0-98.0) fL MCH (28.2-33.3) pg MCHC (31.7-36.0) g/dL RDW (11.2-14.1) % Plt Count (150-350) K/uL Neut % (Auto) (45.0-80.0) % Lymph % (Auto) (10.0-50.0) % [place] % (Auto) (2.0-14.0) % Eos % (Auto) (0.0-5.0) % Baso % (Auto) (0.0-2.0) % Neut # (Auto) (1.40-7.00) K/uL Lymph # (Auto) (0.50-3.50) K/uL [place] # (Auto) (0.00-1.00) K/uL Eos # (Auto) (0.00-0.50) K/uL Baso # (Auto) (0.00-0.20) K/uL PT (9.5-12.0) SEC INR APTT (24.5-32.8) SEC Sodium 138 (136-145) mmol/L Potassium 4.0 (3.5-5.1) mmol/L Chloride 98 (98-107) mmol/L Carbon Dioxide 28.4 (21.0-32.0) mmol/L BUN 16 (7-18) mg/dL Creatinine 0.87 (0.51-1.17) mg/dL Est Cr Clr Drug Dosing TNP Estimated GFR (MDRD) > 60 mL/min Glucose 189 H (74-106) mg/dL Hemoglobin A1c (4.3-5.7) % Lactic Acid 2.0 (0.4-2.0) mmol/L Uric Acid 5.1 (2.6-7.2) mg/dL Calcium 9.0 (8.5-10.1) mg/dL Magnesium 2.0 (1.8-2.4) mg/dL Total Bilirubin 1.4 H 1.4 H (0.2-1.0) mg/dL Direct Bilirubin 0.3 H (0.0-0.2) mg/dL Indirect Bilirubin 1.1 mg/dL AST 22 (15-37) U/L ALT 30 (12-78) U/L Alkaline Phosphatase 52 (46-116) IU/L Total Protein 7.2 (6.4-8.2) g/dL Albumin 2.9 L (3.4-5.0) g/dL Amylase (25-115) U/L Lipase 58 L (73-393) U/L Specimen Type Urine Color Urine Appearance Urine pH (5.0-9.0) Ur Specific Fel[place] (1.005-1.030) Urine Protein (NEGATIVE) mg/dL Urine Glucose (UA) (NEGATIVE) mg/dL Urine Ketones (NEGATIVE) mg/dL Urine Occult Blood (NEGATIVE) Urine Nitrite (NEGATIVE) Urine Bilirubin (NEGATIVE) Urine Urobilinogen (0.2-1.0) E.U./dL Ur Leukocyte Esterase (NEGATIVE) Urine RBC /HPF Urine WBC /HPF Ur Epithelial Cells /LPF Amorphous Sediment (0/HPF) /HPF Urine Bacteria (NONE TO FEW) /HPF Urine Mucus (NEGATIVE) /LPF 06/09/20 06/09/20 06/09/20 Range/Units 00:01 07:40 07:40 WBC 11.1 H (4.0-10.2) K/uL RBC 3.78 L (4.33-5.41) M/uL Hgb 11.7 L (13.1-16.8) g/dL Hct 36.6 L (39.0-49.0) % MCV 96.8 (84.0-98.0) fL MCH 31.0 (28.2-33.3) pg MCHC 32.0 (31.7-36.0) g/dL RDW 14.0 (11.2-14.1) % Plt Count 346 (150-350) K/uL Neut % (Auto) 72.4 (45.0-80.0) % Lymph % (Auto) 14.0 (10.0-50.0) % [place] % (Auto) 10.7 (2.0-14.0) % Eos % (Auto) 2.6 (0.0-5.0) % Baso % (Auto) 0.3 (0.0-2.0) % Neut # (Auto) 8.05 H (1.40-7.00) K/uL Lymph # (Auto) 1.56 (0.50-3.50) K/uL [place] # (Auto) 1.19 H (0.00-1.00) K/uL Eos # (Auto) 0.29 (0.00-0.50) K/uL Baso # (Auto) 0.03 (0.00-0.20) K/uL PT (9.5-12.0) SEC INR APTT (24.5-32.8) SEC Sodium (136-145) mmol/L Potassium (3.5-5.1) mmol/L Chloride (98-107) mmol/L Carbon Dioxide (21.0-32.0) mmol/L BUN (7-18) mg/dL Creatinine (0.51-1.17) mg/dL Est Cr Clr Drug Dosing Estimated GFR (MDRD) mL/min Glucose (74-106) mg/dL Hemoglobin A1c 6.9 H (4.3-5.7) % Lactic Acid (0.4-2.0) mmol/L Uric Acid (2.6-7.2) mg/dL Calcium (8.5-10.1) mg/dL Magnesium (1.8-2.4) mg/dL Total Bilirubin (0.2-1.0) mg/dL Direct Bilirubin (0.0-0.2) mg/dL Indirect Bilirubin mg/dL AST (15-37) U/L ALT (12-78) U/L Alkaline Phosphatase (46-116) IU/L Total Protein (6.4-8.2) g/dL Albumin (3.4-5.0) g/dL Amylase (25-115) U/L Lipase (73-393) U/L Specimen Type Urincc Urine Color Dark yellow Urine Appearance Clear Urine pH 7.5 (5.0-9.0) Ur Specific [place] 1.020 (1.005-1.030) Urine Protein Negative (NEGATIVE) mg/dL Urine Glucose (UA) Negative (NEGATIVE) mg/dL Urine Ketones 15 H (NEGATIVE) mg/dL Urine Occult Blood Trace-intact H (NEGATIVE) Urine Nitrite Negative (NEGATIVE) Urine Bilirubin Small H (NEGATIVE) Urine Urobilinogen 0.2 (0.2-1.0) E.U./dL Ur Leukocyte Esterase Negative (NEGATIVE) Urine RBC Not seen /HPF Urine WBC 0-5 /HPF Ur Epithelial Cells Rare /LPF Amorphous Sediment Few (0/HPF) /HPF Urine Bacteria Rare (NONE TO FEW) /HPF Urine Mucus Rare H (NEGATIVE) /LPF [place] Results Last 24 Hours: Microbiology 06/08/20 10:20 Stool Occult Blood ([place]) - Final Stool / Feces NEGATIVE OCCULT BLOOD REFERENCE RANGE: NEGATIVE Urine culture and sensitivity pending Med Orders - Current: Current Medications Acetaminophen (Tylenol) 650 mg PO Q4H PRN PRN Reason: Pain Last Admin: 06/09/20 06:23 Dose: 650 mg Documented by: Cetirizine HCl (Zyrtec) 10 mg PO DAILY [facility] Last Admin: 06/09/20 07:21 Dose: 10 mg Documented by: Famotidine (Pepcid) 20 mg IVPUSH Q12H [facility] Ceftriaxone Sodium 1 gm/ (Sodium Chloride) 100 mls @ 200 mls/hr IV Q12H [facility] Last Admin: 06/09/20 01:45 Dose: 200 mls/hr Documented by: Metronidazole 500 mg/ Premix 100 mls @ 100 mls/hr IV Q8H [facility] Last Admin: 06/09/20 06:20 Dose: 100 mls/hr Documented by: Non-Formulary Medication (Nf Drug) each SUBCUT ASDIRECTED [facility] Ondansetron HCl (Zofran) 4 mg IVPUSH Q6H PRN PRN Reason: Nausea/Vomiting Pantoprazole Sodium (Protonix Iv) 40 mg IVPUSH Q12H [facility] Last Admin: 06/08/20 22:23 Dose: 40 mg Documented by: Senna/Docusate Sodium (Senna Plus) 1 tab PO BID [facility] Last Admin: 06/09/20 07:21 Dose: 1 tab Documented by: Sodium Chloride (Saline Flush) 10 ml FLUSH ASDIRECTED PRN PRN Reason: Keep Vein Open Last Admin: 06/08/20 22:23 Dose: 10 ml Documented by: Sodium Chloride (Saline Flush) 10 ml FLUSH Q12HR [facility] Last Admin: 06/09/20 07:23 Dose: 10 ml Documented by: Tamsulosin HCl (Flomax) 0.4 mg PO BEDTIME [facility] Last Admin: 06/08/20 19:23 Dose: 0.4 mg Documented by: Temazepam (Restoril) 15 mg PO DAILY@2000 PRN PRN Reason: Insomnia Trimethoprim/Sulfamethoxazole (Septra Ds) 1 tab PO BID [facility] Last Admin: 06/09/20 07:21 Dose: 1 tab Documented by: Discontinued Medications Famotidine (Pepcid) 40 mg IVPUSH ONETIME ONE Stop: 06/08/20 10:14 Last Admin: 06/08/20 10:18 Dose: 40 mg Documented by: Ceftriaxone Sodium 1 gm/ (Sodium Chloride) 100 mls @ 200 mls/hr IV Q12H [facility] Metronidazole 500 mg/ Premix 100 mls @ 100 mls/hr IV Q8H [facility] Magnesium Citrate (Citrate Of Magnesia) 0 ml PO ONETIME ONE Stop: 06/08/20 11:43 Last Admin: 06/08/20 13:01 Dose: 296 ml Documented by: Ondansetron HCl (Zofran) 4 mg IVPUSH ONETIME ONE Stop: 06/08/20 10:14 Last Admin: 06/08/20 10:18 Dose: 4 mg Documented by: Pantoprazole Sodium (Protonix Iv) 40 mg IVPUSH ONETIME ONE Stop: 06/08/20 10:14 Last Admin: 06/08/20 10:18 Dose: 40 mg Documented by: Polyethylene Glycol (Miralax) 17 gm PO ONETIME ONE Stop: 06/08/20 11:43 Last Admin: 06/08/20 13:01 Dose: 17 gm Documented by: - Exam Quality Assessment: DVT Prophylaxis (Eliquis). No: Supplemental Oxygen, Urine Catheter, Skin Breakdown, Restraints General: Alert, Oriented, Cooperative, Sedated HEENT: Pupils Equal, Pupils Reactive, EOMI, Mucous Membr. Moist/[place]. No: Scleral Icterus Neck: Supple, Trachea Midline, No JVD, No Thyromegaly. No: Lymphadenopathy, Carotid Bruit Lungs: Normal Respiratory Effort, Rales (Mild bilateral basilar). No: Rhonchi, Rub, Wheezing Cardiovascular: Regular Rate, Regular Rhythm, No Murmurs. No: Gallops, Rubs GI/Abdominal Exam: Normal Bowel Sounds, Soft, Non-Tender, No Organomegaly, No Abnormal Bruit, No Mass, Pelvis Stable, Distended (Mild), Other (Obese). No: Guarding, Rigid, Rebound (Male) Exam: Deferred Back Exam: Normal Inspection, Full Range of Motion. No: CVA Tenderness (L), CVA Tenderness (R), Muscle Spasm Extremities: Pedal Edema (Somewhat improved trace+1 pedal/pretibial edema) than left), Joint Swelling (Right knee consistent with postoperative changes), Leg Pain (Normal postoperative discomfort with range of motion the right knee), Limited Range of Motion (Right knee secondary to recent surgery). No: Los's Sign Peripheral Pulses: 2+: Radial (L), Radial (R), Posterior Tibial (R), Dorsalis Pedis (L) Wound/Incisions: Healing Well, Dressing Dry and Intact, No Drainage Neurological: No New Focal Deficit Psy/Mental Status: Alert, Normal Affect, Normal Mood. No: Agitated, Hallucinations, Withdrawal Symptoms Sepsis Event Note - Evaluation Sepsis Screening Result: No Definite Risk - Focused Exam Vital Signs: Vital Signs Temp Pulse Resp BP Pulse Ox 06/09/20 07:18 36.6 C 75 16 123/70 95 06/09/20 04:00 36.8 C 86 16 139/66 95 06/09/20 00:00 36.9 C 72 16 134/75 95 Date Exam was Performed: 06/09/20 Time Exam was Performed: 09:22 - Problem List & Annotations (1) Abdominal pain SNOMED Code(s): 22763298 Code(s): R10.9 - UNSPECIFIED ABDOMINAL PAIN Status: Acute Priority: High Current Visit: Yes Onset Date: ~06/07/20 Qualifiers: Abdominal location: generalized Qualified Code(s): R10.84 - Generalized abdominal pain Annotation/Comment:: Significant exacerbation of his previous note chronic constipation secondary to postoperative narcotic use, which has been discontinued as above. High-dose IV Pepcid and IV Protonix were given as GI prophylaxis in the emergency room with continuation during this hospitalization, although no previous history of GERD, etc. Note mild leukocytosis on admission with improvement on 06/09. Stable postoperative anemia with normal lactic acid level. Various therapeutic options were discussed in the emergency room with the patient and his , who requested treatment of the patient in observation status for further treatment. Initiateed IV Rocephin and IV Flagyl shortly after admission. Abdominal checks with vitals. Questionable beginning postoperative ileus, which did progress somewhat on 06/09 despite aggressive treatment with MiraLAX and magnesium citrate. CT scan of the abdomen and pelvis with contrast ordered on 06/09 with results pending. Patient will be kept nothing by mouth until these results are obtained. (2) Constipation SNOMED Code(s): 97892717 Code(s): K59.00 - CONSTIPATION, UNSPECIFIED Status: Chronic Priority: Medium Current Visit: Yes Qualifiers: Constipation type: slow transit constipation Qualified Code(s): K59.01 - Slow transit constipation Annotation/Comment:: As above. Magnesium citrate/MiraLAX on admission with repeat dose once CT results of the abdomen are obtained. (3) Diabetes mellitus SNOMED Code(s): 78007669 Code(s): E11.9 - TYPE 2 DIABETES MELLITUS WITHOUT COMPLICATIONS Status: Chronic Priority: Medium Current Visit: Yes Qualifiers: Diabetes mellitus type: type 2 Diabetes mellitus detention insulin use: without detention use Diabetes mellitus complication status: without complication Qualified Code(s): E11.9 - Type 2 diabetes mellitus without complications Annotation/Comment:: Continue current medical therapy. Glycosylated hemoglobin 6.9% on 06/09. Weight loss in moderation advisable. Continue to observe closely by his regular provider. (4) Hyperlipidemia SNOMED Code(s): 32768193 Code(s): E78.5 - HYPERLIPIDEMIA, UNSPECIFIED Status: Chronic Priority: Medium Current Visit: Yes Qualifiers: Hyperlipidemia type: unspecified Qualified Code(s): E78.5 - Hyperlipidemia, unspecified Annotation/Comment:: Weight loss in moderation advisable. Continue to observe closely by his regular provider. (5) Osteoarthritis SNOMED Code(s): 768588883 Code(s): M19.90 - UNSPECIFIED OSTEOARTHRITIS, UNSPECIFIED SITE Status: Chronic Priority: Medium Current Visit: Yes Qualifiers: Osteoarthritis location: multiple joints Osteoarthritis type: primary Qualified Code(s): M89.49 - Other hypertrophic osteoarthropathy, multiple sites Annotation/Comment:: Note status post right total knee arthroplasty on 06/04/20 with otherwise stable arthritic complaints. (6) Tobacco abuse counseling SNOMED Code(s): 773031122, 462732145, 582577979 Code(s): Z71.6 - TOBACCO ABUSE COUNSELING Status: Chronic Priority: Medium Current Visit: Yes Annotation/Comment:: The patient was counseled on chewing tobacco complications and the use of Nicorette gum with tobacco cessation strongly encouraged with information to be provided at time of discharge. (7) Anemia SNOMED Code(s): 939451757 Code(s): D64.9 - ANEMIA, UNSPECIFIED Status: Acute Priority: Medium Current Visit: Yes Onset Date: 06/08/20 Qualifiers: Anemia type: other cause Other causes of anemia: other cause, not classified Qualified Code(s): D64.89 - Other specified anemias Annotation/Comment:: Mild postoperative anemia. No evidence of acute GI bleed. Elevated ferritin level with somewhat decreased iron level and TIBC panel secondary to his hypoalbuminemia. Vitamin B 12 level is normal. Observe for now. No blood transfusion required after recent knee surgery. (8) Hyperbilirubinemia SNOMED Code(s): 87059486 Code(s): E80.6 - OTHER DISORDERS OF BILIRUBIN METABOLISM Status: Acute Priority: Medium Current Visit: Yes Onset Date: 06/08/20 Annotation/Comment:: Gilbert's syndrome. Observe for now. (9) Hypoalbuminemia SNOMED Code(s): 186814485 Code(s): E88.09 - OTH DISORDERS OF PLASMA-PROTEIN METABOLISM, NEC Status: Acute Priority: Medium Current Visit: Yes Onset Date: 06/08/20 Annotation/Comment:: Observe for now. Consider high protein Glucerna supplements as snacks, however note current obesity. (10) CHF (congestive heart failure) SNOMED Code(s): 00908341 Code(s): I50.9 - HEART FAILURE, UNSPECIFIED Status: Acute Priority: Medium Current Visit: Yes Onset Date: 06/09/20 Qualifiers: Heart failure type: unspecified Heart failure chronicity: acute Qualified Code(s): I50.9 - Heart failure, unspecified Annotation/Comment:: Mild CHF by x-rays on 06/09/20. Low-dose IV Lasix initiated on 06/09 with consideration of echocardiogram on an outpatient basis. No chest pain or anginal type symptoms - Problem List Review Problem List Initiated/Reviewed/Updated: Yes - My Orders Last 24 Hours: My Active Orders 06/08/20 Breakfast Nothing Per Oral Diet [DIET] 06/08/20 10:13 Sodium Chloride 0.9% [Saline Flush] 10 ml FLUSH ASDIRECTED PRN Resuscitation Status Stat 06/08/20 10:14 Peripheral IV Care [RC] . DIRECTED Abdomen Series w Chest 1V [CR] Stat Peripheral IV Insertion Adult [OM.PC] Stat 06/08/20 11:38 Communication Order [RC] PER UNIT ROUTINE Height and Weight [RC] DAILY Intake and Output Strict [RC] ASDIRECTED Oxygen Therapy [RC] PRN Pulse Oximetry [RC] ASDIRECTED Up With Assistance [RC] ASDIRECTED Vital Signs [RC] Q4HR CULTURE URINE [RM] Stat OCCULT BLOOD DIAGNOSTIC [OP] Routine Acetaminophen [Tylenol] 650 mg PO Q4H PRN Ondansetron [Zofran] 4 mg IVPUSH Q6H PRN GM Immunization Reflex [OM.PC] Click to Edit 06/08/20 11:39 Communication, Vaccine [RC] PER UNIT ROUTINE Vaccines to be Administered [RC] PER UNIT ROUTINE 06/08/20 11:42 Communication Order [RC] ROUTINE 06/08/20 11:45 Non-Formulary Medication [NF Drug] DOSE each SUBCUT ASDIRECTED 06/08/20 14:00 cefTRIAXone [Rocephin] 1 gm Sodium Chloride 0.9% [Normal Saline] 100 ml IV Q12H 06/08/20 14:30 metroNIDAZOLE/Normal Saline [Flagyl 500 MG in NS 100 ML] 500 mg Premix Bag 1 bag IV Q8H 06/08/20 18:00 Docusate Sodium/Sennosides [Senna Plus] 1 tab PO BID Sulfamethoxazole/Trimethoprim [Septra DS] 1 tab PO BID 06/08/20 20:00 Sodium Chloride 0.9% [Saline Flush] 10 ml FLUSH Q12HR Tamsulosin [Flomax] 0.4 mg PO BEDTIME Temazepam [Restoril] 15 mg PO DAILY@1999 PRN 06/08/20 20:06 Antiembolic Devices [RC] 08,20 KELSEY Hose [Antiembolic Hose] [OM.PC] Routine 06/08/20 23:00 Pantoprazole [ProTONIX IV] 40 mg IVPUSH Q12H 06/09/20 05:11 Abdomen Series w Chest 1V [CR] Routine AMYLASE [CHEM] Routine COMPREHENSIVE METABOLIC PN,CMP [CHEM] Routine FERRITIN [CHEM] Routine IRON/TIBC [CHEM] Routine LIPASE [CHEM] Routine VITAMIN B12 [CHEM] Routine 06/09/20 08:00 Cetirizine [ZyrTEC] 10 mg PO DAILY 06/09/20 08:17 Abdomen Pelvis w Cont [CT] Urgent 06/09/20 11:45 Famotidine [Pepcid] 20 mg IVPUSH Q12H - Assessment Assessment:: As above - Plan Plan:: As above. Extensive precautions were given to the patient, who is in agreement with the treatment plan. Anticipate an additional day of observation care with possible transfer to inpatient/acute care depending on his clinical course.
[2020-06-09 08:35] LABS: CHLORIDE,CL 99 mmol/L (98-107); SODIUM,NA 137 mmol/L (136-145)
[2020-06-09] MEDS: Furosemide 40 MG/4 ML VIAL IVPUSH SCH ×2 (09:28→17:21)
[2020-06-09] MEDS: Potassium Chloride 20 MEQ Tab.ER PO SCH ×2 (09:30→17:21)
[2020-06-09] MEDS: Famotidine 20 MG/2 ML SDV IVPUSH SCH ×2 (10:35→22:53)
[2020-06-09] MEDS: Pantoprazole 40 MG Vial IVPUSH SCH ×2 (10:35→22:53)
[2020-06-09] MEDS ORDERED: Diatrizoate Meglumine/Diatrizoate Sodium 37% 30 ML Bottle PO ONE (10:45)
[2020-06-09] MEDS ORDERED: Iopamidol 612 MG/ML 100 ML Bottle IVPUSH ONE (10:45)
[2020-06-09] MEDS ORDERED: Famotidine 20 MG/2 ML SDV IVPUSH SCH (11:45)
[2020-06-09] MEDS ORDERED: cefTRIAXone 1 GM in Sodium Chloride 0.9% 100 ML IV SCH (12:00)
[2020-06-09] MEDS ORDERED: Polyethylene Glycol 3350 Powder 17 GM Packet PO ONE (12:34)
[2020-06-09] MEDS ORDERED: Magnesium Citrate Solution 296 ML Bottle PO ONE (12:35)
[2020-06-09] MEDS ORDERED: metroNIDAZOLE/Normal Saline 500 MG in Premix Bag 1 BAG IV SCH (13:00)
[2020-06-09] MEDS ORDERED: cefTRIAXone 1 GM Vial ONE (13:16)
[2020-06-09] MEDS: Tamsulosin 0.4 MG Cap.ER PO SCH (19:39)
[2020-06-09] MEDS: Sodium Chloride 0.9% 10 ML Syringe FLUSH PRN (22:55)
[2020-06-10] MEDS: Acetaminophen 325 MG Tab PO PRN ×2 (00:40→07:19)
[2020-06-10] MEDS: cefTRIAXone 1 GM in Sodium Chloride 0.9% 100 ML IV SCH (02:07)
[2020-06-10] MEDS ORDERED: Aluminum Hydroxide/Magnesium Hydroxide/Simethicone Susp 30 ML Cup PO PRN (02:09)
[2020-06-10] MEDS: Sodium Chloride 0.9% 10 ML Syringe FLUSH SCH (07:16)
[2020-06-10] MEDS: Sulfamethoxazole/Trimethoprim 800-160 MG Tab PO SCH (07:19)
[2020-06-10] MEDS: Potassium Chloride 20 MEQ Tab.ER PO SCH (07:19)
[2020-06-10] MEDS: Cetirizine 10 MG Tab PO SCH (07:20)
[2020-06-10] MEDS: metroNIDAZOLE/Normal Saline 500 MG in Premix Bag 1 BAG IV SCH (07:20)
[2020-06-10] MEDS: Furosemide 40 MG/4 ML VIAL IVPUSH SCH (07:20)
[2020-06-10 08:13] LABS: CHLORIDE,CL 101 mmol/L (98-107); SODIUM,NA 139 mmol/L (136-145)
--- NOTE | 2020-06-10 09:13 | PCM.DCSUM1 ---
Discharge Summary - Hospital Course HPI Initial Comments: See emergency room note/admission H&P Brief History: See emergency room note/admission H&P Diagnosis: Stroke: No Modified Archer Scale: No Symptoms at All Modified Archer Scale Score: 0 - Discharge Data Discharge Date: 06/10/20 Discharge Disposition: Home, W Home Health Agency 06 Condition: Good - Referral to Home Health Date of Face to Face Encounter: 06/10/20 Reason for Homebound Status: Recent right total knee arthroplasty Primary Care Physician: MILDRED Walsh Skilled Need: Recent right knee total arthroplasty with postoperative anemia and ileus - Discharge Diagnosis/Problem(s) (1) Abdominal pain SNOMED Code(s): 57974209 ICD Code: R10.9 - UNSPECIFIED ABDOMINAL PAIN Status: Acute Priority: High Current Visit: Yes Onset Date: ~06/07/20 Problem Details: CT scan of the abdomen and pelvis on 06/09 did show evidence of refractory postoperative ileus with excellent results after second dose of magnesium citrate/MiraLAX yesterday afternoon. Multiple normal bowel movements throughout the day yesterday and yesterday evening with no bowel movement yet this morning. He does continue to have some flatulence but no abdominal pain, distention, or discomfort. Refractory symptoms extending his observation status care as above. Significant exacerbation of his previous chronic constipation secondary to postoperative narcotic use, which had been discontinued shortly prior to admission as per emergency room note. High-dose IV Pepcid and IV Protonix were given as GI prophylaxis in the emergency room with continuation during this hospitalization, although no previous history of GERD, etc. Note mild leukocytosis on admission with improvement on 06/09 and resolution on 06/10. Stable postoperative anemia during this hospitalization with normal lactic acid level on admission. Various therapeutic options were discussed in the emergency room with the patient and his , who requested treatment of the patient in observation status for further treatment. Initiated IV Rocephin and IV Flagyl shortly after admission with oral Levaquin and Flagyl at time of discharge. Abdominal checks with vitals have been stable throughout this hospitalization. Questionable initial beginning postoperative ileus, which did progress somewhat on 06/09 despite aggressive treatment with MiraLAX and magnesium citrate. Patient initially kept nothing by mouth with patient tolerating his diet well yesterday with no current nausea, etc. Close follow-up by regular provider as per discharge instructions. Qualifiers: Abdominal location: generalized Qualified Code(s): R10.84 - Generalized abdominal pain (2) Constipation SNOMED Code(s): 46302680 ICD Code: K59.00 - CONSTIPATION, UNSPECIFIED Status: Chronic Priority: Medium Current Visit: Yes Problem Details: As above. Magnesium citrate/MiraLAX on admission with repeat dose given once CT results of the abdomen were obtained on 06/09 as above. Qualifiers: Constipation type: slow transit constipation Qualified Code(s): K59.01 - Slow transit constipation (3) Diabetes mellitus SNOMED Code(s): 79357531 ICD Code: E11.9 - TYPE 2 DIABETES MELLITUS WITHOUT COMPLICATIONS Status: Chronic Priority: Medium Current Visit: Yes Problem Details: Continue current medical therapy. Glycosylated hemoglobin 6.9% on 06/09. Weight loss in moderation advisable. Continue to observe closely by his regular provider. Qualifiers: Diabetes mellitus type: type 2 Diabetes mellitus senior living insulin use: without senior living use Diabetes mellitus complication status: without complication Qualified Code(s): E11.9 - Type 2 diabetes mellitus without complications (4) Hyperlipidemia SNOMED Code(s): 09161318 ICD Code: E78.5 - HYPERLIPIDEMIA, UNSPECIFIED Status: Chronic Priority: Medium Current Visit: Yes Problem Details: Weight loss in moderation advisable. Continue to observe closely by his regular provider. Dietary information given at time of discharge. Qualifiers: Hyperlipidemia type: unspecified Qualified Code(s): E78.5 - Hyperlipidemia, unspecified (5) Osteoarthritis SNOMED Code(s): 145221797 ICD Code: M19.90 - UNSPECIFIED OSTEOARTHRITIS, UNSPECIFIED SITE Status: Chronic Priority: Medium Current Visit: Yes Problem Details: Note status post right total knee arthroplasty on 06/04/20 with otherwise stable arthritic complaints. [facility] home health and outpatient PT/OT had already been arranged prior to admission with continuation of these services after discharge. He does have a follow-up appointment with his orthopedic surgeon later this week by his history. Qualifiers: Osteoarthritis location: multiple joints Osteoarthritis type: primary Qualified Code(s): M89.49 - Other hypertrophic osteoarthropathy, multiple sites (6) Tobacco abuse counseling SNOMED Code(s): 744632662, 172101071, 234517234 ICD Code: Z71.6 - TOBACCO ABUSE COUNSELING Status: Chronic Priority: Medium Current Visit: Yes Problem Details: The patient was counseled on chewing tobacco complications and the use of Nicorette gum with tobacco cessation strongly encouraged with information to be provided at time of discharge. (7) Anemia SNOMED Code(s): 349747725 ICD Code: D64.9 - ANEMIA, UNSPECIFIED Status: Acute Priority: Medium Current Visit: Yes Onset Date: 06/08/20 Problem Details: Mild postoperative anemia. No evidence of acute GI bleed. Elevated ferritin level with somewhat decreased iron level and TIBC panel secondary to his hypoalbuminemia. Vitamin B 12 level is normal. Observe for now. No blood transfusion required after recent knee surgery. Qualifiers: Anemia type: other cause Other causes of anemia: other cause, not classified Qualified Code(s): D64.89 - Other specified anemias (8) Hyperbilirubinemia SNOMED Code(s): 45005095 ICD Code: E80.6 - OTHER DISORDERS OF BILIRUBIN METABOLISM Status: Acute Priority: Medium Current Visit: Yes Onset Date: 06/08/20 Problem Details: Gilbert's syndrome. Observe for now. (9) Hypoalbuminemia SNOMED Code(s): 971134387 ICD Code: E88.09 - H DISORDERS OF PLASMA-PROTEIN METABOLISM, NEC Status: Acute Priority: Medium Current Visit: Yes Onset Date: 06/08/20 Problem Details: Observe for now. Consider high protein Glucerna supplements as snacks, however note current obesity. (10) CHF (congestive heart failure) SNOMED Code(s): 32507826 ICD Code: I50.9 - HEART FAILURE, UNSPECIFIED Status: Acute Priority: Medium Current Visit: Yes Onset Date: 06/09/20 Problem Details: Mild CHF by x-rays on 06/09/20. Low-dose IV Lasix initiated on 06/09 with consideration of echocardiogram on an outpatient basis. No chest pain or anginal type symptoms. No diuretics to be initiated at discharge, although these may be needed at time of follow-up visit as per discharge instructions. BNP normal at discharge with artifactually elevated CK index secondary to low baseline CK. Negative workup for acute MT. Further cardiology workup including cartilage stress test, etc. depending on his clinical course. Qualifiers: Heart failure type: unspecified Heart failure chronicity: acute Qualified Code(s): I50.9 - Heart failure, unspecified (11) First degree AV block SNOMED Code(s): 280603925 ICD Code: I44.0 - ATRIOVENTRICULAR BLOCK, FIRST DEGREE Status: Acute Priority: Medium Current Visit: Yes Onset Date: 06/10/20 Problem Details: Nonsymptomatic. Observe for now. (12) Lesion of right [place] kidney SNOMED Code(s): 78758073 ICD Code: N28.9 - DISORDER OF KIDNEY AND URETER, UNSPECIFIED Status: Acute Priority: High Current Visit: Yes Onset Date: 06/09/20 Problem Details: Incidental right renal lesion of unknown character. Renal/abdominal ultrasound once current ileus and borderline obstruction have resolved as per discharge instructions. - Patient Summary/Data Operative Procedure(s) Performed: None Complications: None Consults: None Labs Pending at D/C: 1. Final x-ray report from acute abdominal x-rays on 06/10/20 2. Final urine culture and sensitivity results Recommended Follow-up Testing/Procedures: As per discharge instructions Planned Operative Procedure(s) after DC: None Hospital Course: Patient was placed in observation status with aggressive treatment of his postoperative ileus as above. His symptoms did remain somewhat refractory to therapy, which did require somewhat prolonged observation care. Note some mild CHF during this hospitalization with no IV fluids given. No history of chest pain or anginal type symptoms with normalized BNP and improved clinical exam at time of discharge. Otherwise mild postoperative anemia as above with no evidence of acute GI bleed, etc.. Close follow-up by his regular provider and his orthopedic surgeon as above. - Patient Instructions Diet: Fluid Restriction Diet, Other: 1500-calorie ADA, heart healthy, diverticulosis, high fiber Fluid Restriction: 2000 mL Activity: As Tolerated (And directed by PT with strict fall precautions) Driving: Do Not Drive Showering/Bathing: May Shower Wound/Incision Care: Keep Operative Site/Wound Site Clean and Dry Notify Provider of: Fever, Increased Pain, Swelling and Redness, Drainage, Nausea and/or Vomiting Other/Special Instructions: 1. Followup with your regular provider in 4-5 days as directed for reevaluation and recommended repeat CBC, comprehensive metabolic panel, BNP, CK, CK-MB, cardiac index, troponin I, and acute abdominal x-rays. Bring these discharge instructions with you to that visit. 2. Otherwise follow-up with your orthopedic surgeon as already scheduled for later this week. 3. Discuss with your regular provider possible scheduling of an echocardiogram on an outpatient basis secondary to borderline heart failure. 4. Continue your previous Celebrex with no further aspirin, Aleve, ibuprofen, or other NSAIDs secondary to your current Eliquis use. 5. Continue home health, PT, and OT as before. 6. Recommend goal of excellent daily bowel movements. 7. Stop all tobacco use RITESH as directed/per provided information and consider contacting [employer], etc.. 8. Immediately after this visit verify that your cellular telephone's voicemail has been activated and is empty. Also verify that your home telephone's answering machine is operating properly and has space to receive messages. Note that it is sometimes necessary for us to be able to contact you at a later date to discuss your medical care. 9. Please remember that we are ALWAYS here for you and want to answer any questions you may have. Feel free to call the hospital any time and we call you back RITESH. 10. Take 5 days of both of your antibiotics. Start your Levaquin today this afternoon. S trict no alcohol when taking metronidazole with additional #5 tablets called to your pharmacy in order to complete this 5 day regimen. 11. Your CT scan did show a nonspecific lesion on your right kidney. Kidney and/or abdominal ultrasound should be conducted and scheduled by your regular provider once your current abdominal gas and symptoms have improved/resolved. SYMPTOMS TO LOOK OUT FOR: You have been hospitalized for your stomach or abdominal disease and should look out for the following symptoms after discharge: 1. Make absolutely certain that you completely understand the reasons you are taking any of your new and/or old medications and/or supplements as discussed with you by the nurse at time of discharge. This includes possible side effects versus interactions between your medications and/or supplements. Don't be afraid to take extra time to ask any questions or express any concerns, because that is what we are here for. It is very important to us that you understand your care. 2. Notify this facility, telephone number [phone], and/or your regular provider RITESH if you experience any of the following symptoms: a. Any increased abdominal pain, heartburn, nausea, vomiting, etc., which has changed since sure hospital discharge and is not responding to medications and/or supplements you have been prescribed. b. Any change in bowel habits, including more than 5 watery stools per day, severe constipation with no excellent bowel movements every 2 days after discharge, and/or any change in your normal bowel habits. c. Any sudden onset of change of your stool appearance, including blood, black tarry stools, etc. as discussed at discharge. d. Any persistent fever equal to or greater than 100.5 degrees, which does not respond to recommended doses of Tylenol, ibuprofen, Aleve, or other previously prescribed fever medications - Discharge Plan *PRESCRIPTION DRUG MONITORING PROGRAM REVIEWED*: Not Applicable *COPY OF PRESCRIPTION DRUG MONITORING REPORT IN PATIENT BRIDGET: Not Applicable Prescriptions/Med Rec: Lactobacillus Combination No.8 [Adult Probiotic] 1 each PO BID #20 capsule metroNIDAZOLE [Flagyl] 500 mg PO TIDMEALS #5 tablet levoFLOXacin [Levaquin] 500 mg PO QPM #5 tab Home Medications: Home Meds Tamsulosin HCl [Flomax] 0.4 mg PO BEDTIME 04/16/20 [History] Apixaban [Eliquis] 2.5 mg PO BID 06/08/20 [History] Cetirizine [ZyrTEC] 1 tab PO DAILY 06/08/20 [History] Non-Formulary Medication [NF Drug] 1 injection SUBCUT ASDIRECTED 06/08/20 [History] Sennosides/Docusate Sodium [Senna Plus 8.6-50 mg Tablet] 1 tab PO BID 06/08/20 [History] Sulfamethoxazole/Trimethoprim [Sulfamethoxazole-Tmp Ds Tablet] 1 tab PO BID 06/08/20 [History] Acetaminophen [Tylenol] 650 mg PO Q4H PRN tablet 06/10/20 [Rx] Alum Hydrox/Mag Hydrox/Simeth [Mag-Al Plus] 30 ml PO ASDIRECTED PRN cup 06/10/20 [Rx] Lactobacillus Combination No.8 [Adult Probiotic] 1 each PO BID #20 capsule 06/10/20 [Rx] levoFLOXacin [Levaquin] 500 mg PO QPM #5 tab 06/10/20 [Rx] metroNIDAZOLE [Flagyl] 500 mg PO TIDMEALS #5 tablet 06/10/20 [Rx] Oxygen Therapy Mode: Room Air Patient Handouts: Nicotine chewing gum, Heart-Healthy Eating Plan, [id number], Ileus, Smokeless Tobacco Information, Adult, Diabetes Mellitus and Nutrition, Adult Forms: ED Department Discharge Referrals: Tali Nash PA [Primary Care Provider] - - Discharge Summary/Plan Comment DC Time >30 min.: Yes Discharge Summary/Plan Comment: As above. Extensive precautions were given to the patient, who is in agreement with the treatment plan. See Patient Instructions for further treatment and plan. - General Info Date of Service: 06/10/20 Admission Dx/Problem (Free Text: 1. Abdominal pain with possible postoperative ileus 2. Chronic constipation 3. Osteoarthritis with status post recent right TKA Functional Status: Reports: Pain Controlled, Tolerating Diet, Ambulating, Urinating, Incentive Spirometry. Denies: New Symptoms Numeric/FACES Score: 2 (Stable Postoperative right knee pain) - Review of Systems General: Denies: Fever, Weakness, Fatigue, Malaise, Chills, Night Sweats, Appetite (Good) HEENT: Reports: Glasses. Denies: Contact Lenses, Dysphasia, Ear Pain, Eye Pain, Headaches, Post Nasal Drip, Sinus Congestion, Sore Throat, Rhinitis, Visual Changes Pulmonary: Reports: No Symptoms. Denies: Shortness of Breath, Pleuritic Chest Pain, Cough Cardiovascular: Reports: Edema (Improved). Denies: Chest Pain, Palpitations, Dyspnea on Exertion, Orthopnea, PND, Lightheadedness Gastrointestinal: Reports: No Symptoms. Denies: Abdominal Pain, Constipation, Decreased Appetite, Diarrhea, Difficulty Swallowing, Flatus (Normal), Hematochezia, Melena, Nausea, Vomiting, Other Genitourinary: Reports: No Symptoms. Denies: Dysuria, Frequency, Burning, Pain, Urgency, Incontinence, Hematuria, Retention, Flank Pain Musculoskeletal: Reports: Leg Pain (Improved postoperative left knee pain as above), Joint Pain. Denies: Neck Pain, Shoulder Pain, Arm Pain, Hand Pain, Back Pain Skin: Reports: Bruising (Forearms bilaterally), Other (Moderate venous stasis dermatitis of the lower extremities). Denies: Pallor, Diaphoresis, Rash Neurological: Reports: Difficulty Walking (Improving postoperative). Denies: Confusion, Headache, Numbness, Paresthesia, Tingling, Weakness Psychiatric: Denies: Confusion, Depression, Anxiety, Agitation, Cravings, Hallucinations - Patient Data Vitals - Most Recent: Last Vital Signs Temp 36.7 C 06/10/20 07:22 Pulse 70 06/10/20 07:22 Resp 16 06/10/20 07:22 BP 129/54 L 06/10/20 07:22 Pulse Ox 94 L 06/10/20 07:22 Vital Signs - 24 hr 06/09/20 06/09/20 06/09/20 12:00 16:00 20:00 Temperature [ 36.6 C 36.7 C 36.7 C Temporal] Pulse, 73 70 84 Peripheral [ Pulse Oximetry] Respiratory 16 16 12 Rate Blood Pressure 125/53 L 131/54 L 140/77 [Right Upper Arm] O2 Sat by Pulse 95 94 L 96 Oximetry 06/09/20 06/10/20 23:48 07:22 Temperature [ 37.0 C 36.7 C Temporal] Pulse, 78 70 Peripheral [ Pulse Oximetry] Respiratory 16 16 Rate Blood Pressure 132/68 129/54 L [Right Upper Arm] O2 Sat by Pulse 96 94 L Oximetry Weight - Most Recent: 133.991 kg I&O - Last 24 hours: Intake & Output 06/09/20 06/10/20 06/10/20 22:59 06:59 14:59 Intake Total 120 Balance 120 Imaging Impressions - Last 24 hrs: Last acute abdominal x-rays on 06/10/20 showed mild prominence of the proximal aortic arch with borderline centralized CHF, including Aramis B lines, with borderline COPD changes and no pulmonary infiltrates, pneumothorax, etc. Persistent moderate diffuse stool and borderline although improved moderate diffuse gaseous distention with no free air or significant obstruction CT of the abdomen and pelvis with IV and oral contrast on 06/09/20. Partial small bowel ileus versus obstruction with incidental 1.9 cm left renal lesion of unknown character Lab Results - Last 24 hrs: Laboratory Results - last 24 hr 06/10/20 06/10/20 Range/Units :20 07:20 WBC 9.6 (4.0-10.2) K/uL RBC 3.86 L (4.33-5.41) M/uL Hgb 11.9 L (13.1-16.8) g/dL Hct 36.9 L (39.0-49.0) % MCV 95.6 (84.0-98.0) fL MCH 30.8 (28.2-33.3) pg MCHC 32.2 (31.7-36.0) g/dL RDW 13.7 (11.2-14.1) % Plt Count 368 H (150-350) K/uL Neut % (Auto) 68.1 (45.0-80.0) % Lymph % (Auto) 15.7 (10.0-50.0) % Scott % (Auto) 11.6 (2.0-14.0) % Eos % (Auto) 4.4 (0.0-5.0) % Baso % (Auto) 0.2 (0.0-2.0) % Neut # (Auto) 6.55 (1.40-7.00) K/uL Lymph # (Auto) 1.51 (0.50-3.50) K/uL Scott # (Auto) 1.12 H (0.00-1.00) K/uL Eos # (Auto) 0.42 (0.00-0.50) K/uL Baso # (Auto) 0.02 (0.00-0.20) K/uL Sodium 139 (136-145) mmol/L Potassium 3.9 (3.5-5.1) mmol/L Chloride 101 (98-107) mmol/L Carbon Dioxide 31.8 (21.0-32.0) mmol/L BUN 18 (7-18) mg/dL Creatinine 0.93 (0.51-1.17) mg/dL Est Cr Clr Drug Dosing TNP Estimated GFR (MDRD) > 60 mL/min Glucose 163 H (74-106) mg/dL Calcium 8.5 (8.5-10.1) mg/dL Creatine Kinase 38 (26-308) U/L Creatine Kinase Index 2.6 H (0.0-2.5) % CK-MB (CK-2) 1.00 (0.00-3.60) ng/mL Troponin I 0.000 (0.000-0.056) ng/mL NT-Pro-B Natriuret Pep 91 (0-125) pg/mL Laboratory Tests 06/08/20 06/08/20 06/08/20 Range/Units 10:25 10:25 10:25 WBC 13.2 H (4.0-10.2) K/uL RBC 3.95 L (4.33-5.41) M/uL Hgb 12.3 L D (13.1-16.8) g/dL Hct 37.6 L (39.0-49.0) % MCV 95.2 (84.0-98.0) fL MCH 31.1 (28.2-33.3) pg MCHC 32.7 (31.7-36.0) g/dL RDW 13.9 (11.2-14.1) % Plt Count 332 D (150-350) K/uL Neut % (Auto) 81.5 H (45.0-80.0) % Lymph % (Auto) 8.6 L (10.0-50.0) % Scott % (Auto) 9.0 (2.0-14.0) % Eos % (Auto) 0.7 (0.0-5.0) % Baso % (Auto) 0.2 (0.0-2.0) % Neut # (Auto) 10.73 H (1.40-7.00) K/uL Lymph # (Auto) 1.13 (0.50-3.50) K/uL Scott # (Auto) 1.18 H (0.00-1.00) K/uL Eos # (Auto) 0.09 (0.00-0.50) K/uL Baso # (Auto) 0.02 (0.00-0.20) K/uL PT 10.0 (9.5-12.0) SEC INR 1.0 APTT 27.2 (24.5-32.8) SEC Sodium (136-145) mmol/L Potassium (3.5-5.1) mmol/L Chloride (98-107) mmol/L Carbon Dioxide (21.0-32.0) mmol/L BUN (7-18) mg/dL Creatinine (0.51-1.17) mg/dL Est Cr Clr Drug Dosing Estimated GFR (MDRD) mL/min Glucose (74-106) mg/dL Hemoglobin A1c (4.3-5.7) % Lactic Acid (0.4-2.0) mmol/L Uric Acid (2.6-7.2) mg/dL Calcium (8.5-10.1) mg/dL Magnesium (1.8-2.4) mg/dL Iron (50-175) ug/dL TIBC (250-450) ug/dL % Saturation Ferritin (8-388) ng/mL Total Bilirubin (0.2-1.0) mg/dL Direct Bilirubin (0.0-0.2) mg/dL Indirect Bilirubin mg/dL AST (15-37) U/L ALT (12-78) U/L Alkaline Phosphatase (46-116) IU/L Creatine Kinase (26-308) U/L Creatine Kinase Index (0.0-2.5) % CK-MB (CK-2) (0.00-3.60) ng/mL Troponin I (0.000-0.056) ng/mL NT-Pro-B Natriuret Pep (0-125) pg/mL Total Protein (6.4-8.2) g/dL Albumin (3.4-5.0) g/dL Amylase 17 L (25-115) U/L Lipase (73-393) U/L Vitamin B12 (193-986) pg/mL Specimen Type Urine Color Urine Appearance Urine pH (5.0-9.0) Ur Specific [place] (1.005-1.030) Urine Protein (NEGATIVE) mg/dL Urine Glucose (UA) (NEGATIVE) mg/dL Urine Ketones (NEGATIVE) mg/dL Urine Occult Blood (NEGATIVE) Urine Nitrite (NEGATIVE) Urine Bilirubin (NEGATIVE) Urine Urobilinogen (0.2-1.0) E.U./dL Ur Leukocyte Esterase (NEGATIVE) Urine RBC /HPF Urine WBC /HPF Ur Epithelial Cells /LPF Amorphous Sediment (0/HPF) /HPF Urine Bacteria (NONE TO FEW) /HPF Urine Mucus (NEGATIVE) /LPF 06/08/20 06/08/20 06/08/20 Range/Units 10:25 10:25 10:25 WBC (4.0-10.2) K/uL RBC (4.33-5.41) M/uL Hgb (13.1-16.8) g/dL Hct (39.0-49.0) % MCV (84.0-98.0) fL MCH (28.2-33.3) pg MCHC (31.7-36.0) g/dL RDW (11.2-14.1) % Plt Count (150-350) K/uL Neut % (Auto) (45.0-80.0) % Lymph % (Auto) (10.0-50.0) % Scott % (Auto) (2.0-14.0) % Eos % (Auto) (0.0-5.0) % Baso % (Auto) (0.0-2.0) % Neut # (Auto) (1.40-7.00) K/uL Lymph # (Auto) (0.50-3.50) K/uL Scott # (Auto) (0.00-1.00) K/uL Eos # (Auto) (0.00-0.50) K/uL Baso # (Auto) (0.00-0.20) K/uL PT (9.5-12.0) SEC INR APTT (24.5-32.8) SEC Sodium 138 (136-145) mmol/L Potassium 4.0 (3.5-5.1) mmol/L Chloride 98 (98-107) mmol/L Carbon Dioxide 28.4 (21.0-32.0) mmol/L BUN 16 (7-18) mg/dL Creatinine 0.87 (0.51-1.17) mg/dL Est Cr Clr Drug Dosing TNP Estimated GFR (MDRD) > 60 mL/min Glucose 189 H (74-106) mg/dL Hemoglobin A1c (4.3-5.7) % Lactic Acid 2.0 (0.4-2.0) mmol/L Uric Acid 5.1 (2.6-7.2) mg/dL Calcium 9.0 (8.5-10.1) mg/dL Magnesium 2.0 (1.8-2.4) mg/dL Iron (50-175) ug/dL TIBC (250-450) ug/dL % Saturation Ferritin (8-388) ng/mL Total Bilirubin 1.4 H 1.4 H (0.2-1.0) mg/dL Direct Bilirubin 0.3 H (0.0-0.2) mg/dL Indirect Bilirubin 1.1 mg/dL AST 22 (15-37) U/L ALT 30 (12-78) U/L Alkaline Phosphatase 52 (46-116) IU/L Creatine Kinase (26-308) U/L Creatine Kinase Index (0.0-2.5) % CK-MB (CK-2) (0.00-3.60) ng/mL Troponin I (0.000-0.056) ng/mL NT-Pro-B Natriuret Pep (0-125) pg/mL Total Protein 7.2 (6.4-8.2) g/dL Albumin 2.9 L (3.4-5.0) g/dL Amylase (25-115) U/L Lipase 58 L (73-393) U/L Vitamin B12 (193-986) pg/mL Specimen Type Urine Color Urine Appearance Urine pH (5.0-9.0) Ur Specific [place] (1.005-1.030) Urine Protein (NEGATIVE) mg/dL Urine Glucose (UA) (NEGATIVE) mg/dL Urine Ketones (NEGATIVE) mg/dL Urine Occult Blood (NEGATIVE) Urine Nitrite (NEGATIVE) Urine Bilirubin (NEGATIVE) Urine Urobilinogen (0.2-1.0) E.U./dL Ur Leukocyte Esterase (NEGATIVE) Urine RBC /HPF Urine WBC /HPF Ur Epithelial Cells /LPF Amorphous Sediment (0/HPF) /HPF Urine Bacteria (NONE TO FEW) /HPF Urine Mucus (NEGATIVE) /LPF 06/09/20 06/09/20 06/09/20 Range/Units 00:01 07:40 07:40 WBC 11.1 H (4.0-10.2) K/uL RBC 3.78 L (4.33-5.41) M/uL Hgb 11.7 L (13.1-16.8) g/dL Hct 36.6 L (39.0-49.0) % MCV 96.8 (84.0-98.0) fL MCH 31.0 (28.2-33.3) pg MCHC 32.0 (31.7-36.0) g/dL RDW 14.0 (11.2-14.1) % Plt Count 346 (150-350) K/uL Neut % (Auto) 72.4 (45.0-80.0) % Lymph % (Auto) 14.0 (10.0-50.0) % Scott % (Auto) 10.7 (2.0-14.0) % Eos % (Auto) 2.6 (0.0-5.0) % Baso % (Auto) 0.3 (0.0-2.0) % Neut # (Auto) 8.05 H (1.40-7.00) K/uL Lymph # (Auto) 1.56 (0.50-3.50) K/uL Scott # (Auto) 1.19 H (0.00-1.00) K/uL Eos # (Auto) 0.29 (0.00-0.50) K/uL Baso # (Auto) 0.03 (0.00-0.20) K/uL PT (9.5-12.0) SEC INR APTT (24.5-32.8) SEC Sodium 137 (136-145) mmol/L Potassium 3.9 (3.5-5.1) mmol/L Chloride 99 (98-107) mmol/L Carbon Dioxide 31.5 (21.0-32.0) mmol/L BUN 18 (7-18) mg/dL Creatinine 0.89 (0.51-1.17) mg/dL Est Cr Clr Drug Dosing TNP Estimated GFR (MDRD) > 60 mL/min Glucose 140 H (74-106) mg/dL Hemoglobin A1c (4.3-5.7) % Lactic Acid (0.4-2.0) mmol/L Uric Acid (2.6-7.2) mg/dL Calcium 8.7 (8.5-10.1) mg/dL Magnesium (1.8-2.4) mg/dL Iron (50-175) ug/dL TIBC (250-450) ug/dL % Saturation Ferritin (8-388) ng/mL Total Bilirubin 1.0 (0.2-1.0) mg/dL Direct Bilirubin (0.0-0.2) mg/dL Indirect Bilirubin mg/dL AST 25 (15-37) U/L ALT 31 (12-78) U/L Alkaline Phosphatase 50 (46-116) IU/L Creatine Kinase (26-308) U/L Creatine Kinase Index (0.0-2.5) % CK-MB (CK-2) (0.00-3.60) ng/mL Troponin I (0.000-0.056) ng/mL NT-Pro-B Natriuret Pep (0-125) pg/mL Total Protein 6.8 (6.4-8.2) g/dL Albumin 2.7 L (3.4-5.0) g/dL Amylase 17 L (25-115) U/L Lipase 51 L (73-393) U/L Vitamin B12 472 (193-986) pg/mL Specimen Type Urincc Urine Color Dark yellow Urine Appearance Clear Urine pH 7.5 (5.0-9.0) Ur Specific [place] 1.020 (1.005-1.030) Urine Protein Negative (NEGATIVE) mg/dL Urine Glucose (UA) Negative (NEGATIVE) mg/dL Urine Ketones 15 H (NEGATIVE) mg/dL Urine Occult Blood Trace-intact H (NEGATIVE) Urine Nitrite Negative (NEGATIVE) Urine Bilirubin Small H (NEGATIVE) Urine Urobilinogen 0.2 (0.2-1.0) E.U./dL Ur Leukocyte Esterase Negative (NEGATIVE) Urine RBC Not seen /HPF Urine WBC 0-5 /HPF Ur Epithelial Cells Rare /LPF Amorphous Sediment Few (0/HPF) /HPF Urine Bacteria Rare (NONE TO FEW) /HPF Urine Mucus Rare H (NEGATIVE) /LPF 06/09/20 06/09/20 06/10/20 Range/Units 07:40 07:40 07:20 WBC 9.6 (4.0-10.2) K/uL RBC 3.86 L (4.33-5.41) M/uL Hgb 11.9 L (13.1-16.8) g/dL Hct 36.9 L (39.0-49.0) % MCV 95.6 (84.0-98.0) fL MCH 30.8 (28.2-33.3) pg MCHC 32.2 (31.7-36.0) g/dL RDW 13.7 (11.2-14.1) % Plt Count 368 H (150-350) K/uL Neut % (Auto) 68.1 (45.0-80.0) % Lymph % (Auto) 15.7 (10.0-50.0) % Scott % (Auto) 11.6 (2.0-14.0) % Eos % (Auto) 4.4 (0.0-5.0) % Baso % (Auto) 0.2 (0.0-2.0) % Neut # (Auto) 6.55 (1.40-7.00) K/uL Lymph # (Auto) 1.51 (0.50-3.50) K/uL Scott # (Auto) 1.12 H (0.00-1.00) K/uL Eos # (Auto) 0.42 (0.00-0.50) K/uL Baso # (Auto) 0.02 (0.00-0.20) K/uL PT (9.5-12.0) SEC INR APTT (24.5-32.8) SEC Sodium (136-145) mmol/L Potassium (3.5-5.1) mmol/L Chloride (98-107) mmol/L Carbon Dioxide (21.0-32.0) mmol/L BUN (7-18) mg/dL Creatinine (0.51-1.17) mg/dL Est Cr Clr Drug Dosing Estimated GFR (MDRD) mL/min Glucose (74-106) mg/dL Hemoglobin A1c 6.9 H (4.3-5.7) % Lactic Acid (0.4-2.0) mmol/L Uric Acid (2.6-7.2) mg/dL Calcium (8.5-10.1) mg/dL Magnesium (1.8-2.4) mg/dL Iron 33 L (50-175) ug/dL TIBC 192 L (250-450) ug/dL % Saturation [id number] Ferritin 1669 H (8-388) ng/mL Total Bilirubin (0.2-1.0) mg/dL Direct Bilirubin (0.0-0.2) mg/dL Indirect Bilirubin mg/dL AST (15-37) U/L ALT (12-78) U/L Alkaline Phosphatase (46-116) IU/L Creatine Kinase (26-308) U/L Creatine Kinase Index (0.0-2.5) % CK-MB (CK-2) (0.00-3.60) ng/mL Troponin I (0.000-0.056) ng/mL NT-Pro-B Natriuret Pep (0-125) pg/mL Total Protein (6.4-8.2) g/dL Albumin (3.4-5.0) g/dL Amylase (25-115) U/L Lipase (73-393) U/L Vitamin B12 (193-986) pg/mL Specimen Type Urine Color Urine Appearance Urine pH (5.0-9.0) Ur Specific [place] (1.005-1.030) Urine Protein (NEGATIVE) mg/dL Urine Glucose (UA) (NEGATIVE) mg/dL Urine Ketones (NEGATIVE) mg/dL Urine Occult Blood (NEGATIVE) Urine Nitrite (NEGATIVE) Urine Bilirubin (NEGATIVE) Urine Urobilinogen (0.2-1.0) E.U./dL Ur Leukocyte Esterase (NEGATIVE) Urine RBC /HPF Urine WBC /HPF Ur Epithelial Cells /LPF Amorphous Sediment (0/HPF) /HPF Urine Bacteria (NONE TO FEW) /HPF Urine Mucus (NEGATIVE) /LPF 06/10/20 Range/Units 07:20 WBC (4.0-10.2) K/uL RBC (4.33-5.41) M/uL Hgb (13.1-16.8) g/dL Hct (39.0-49.0) % MCV (84.0-98.0) fL MCH (28.2-33.3) pg MCHC (31.7-36.0) g/dL RDW (11.2-14.1) % Plt Count (150-350) K/uL Neut % (Auto) (45.0-80.0) % Lymph % (Auto) (10.0-50.0) % Scott % (Auto) (2.0-14.0) % Eos % (Auto) (0.0-5.0) % Baso % (Auto) (0.0-2.0) % Neut # (Auto) (1.40-7.00) K/uL Lymph # (Auto) (0.50-3.50) K/uL Scott # (Auto) (0.00-1.00) K/uL Eos # (Auto) (0.00-0.50) K/uL Baso # (Auto) (0.00-0.20) K/uL PT (9.5-12.0) SEC INR APTT (24.5-32.8) SEC Sodium 139 (136-145) mmol/L Potassium 3.9 (3.5-5.1) mmol/L Chloride 101 (98-107) mmol/L Carbon Dioxide 31.8 (21.0-32.0) mmol/L BUN 18 (7-18) mg/dL Creatinine 0.93 (0.51-1.17) mg/dL Est Cr Clr Drug Dosing TNP Estimated GFR (MDRD) > 60 mL/min Glucose 163 H (74-106) mg/dL Hemoglobin A1c (4.3-5.7) % Lactic Acid (0.4-2.0) mmol/L Uric Acid (2.6-7.2) mg/dL Calcium 8.5 (8.5-10.1) mg/dL Magnesium (1.8-2.4) mg/dL Iron (50-175) ug/dL TIBC (250-450) ug/dL % Saturation Ferritin (8-388) ng/mL Total Bilirubin (0.2-1.0) mg/dL Direct Bilirubin (0.0-0.2) mg/dL Indirect Bilirubin mg/dL AST (15-37) U/L ALT (12-78) U/L Alkaline Phosphatase (46-116) IU/L Creatine Kinase 38 (26-308) U/L Creatine Kinase Index 2.6 H (0.0-2.5) % CK-MB (CK-2) 1.00 (0.00-3.60) ng/mL Troponin I 0.000 (0.000-0.056) ng/mL NT-Pro-B Natriuret Pep 91 (0-125) pg/mL Total Protein (6.4-8.2) g/dL Albumin (3.4-5.0) g/dL Amylase (25-115) U/L Lipase (73-393) U/L Vitamin B12 (193-986) pg/mL Specimen Type Urine Color Urine Appearance Urine pH (5.0-9.0) Ur Specific [place] (1.005-1.030) Urine Protein (NEGATIVE) mg/dL Urine Glucose (UA) (NEGATIVE) mg/dL Urine Ketones (NEGATIVE) mg/dL Urine Occult Blood (NEGATIVE) Urine Nitrite (NEGATIVE) Urine Bilirubin (NEGATIVE) Urine Urobilinogen (0.2-1.0) E.U./dL Ur Leukocyte Esterase (NEGATIVE) Urine RBC /HPF Urine WBC /HPF Ur Epithelial Cells /LPF Amorphous Sediment (0/HPF) /HPF Urine Bacteria (NONE TO FEW) /HPF Urine Mucus (NEGATIVE) /LPF [facility] Results - Last 24 hrs: Microbiology 06/09/20 00:10 Urine, Clean Catch Urine Culture - Preliminary No Growth 07/17/20 10:20 Stool / Feces Stool Occult Blood (MIL[facility]) - Final NEGATIVE OCCULT BLOOD REFERENCE RANGE: NEGATIVE Med Orders - Current: Current Medications Acetaminophen (Tylenol) 650 mg PO Q4H PRN PRN Reason: Pain Last Admin: 06/10/20 07:19 Dose: 650 mg Documented by: Al Hydroxide/Mg Hydroxide (Mag-Al Plus) 30 ml PO ASDIRECTED PRN PRN Reason: Indigestion Last Admin: 06/10/20 01:30 Dose: 30 ml Documented by: Cetirizine HCl (Zyrtec) 10 mg PO DAILY [facility] Last Admin: 06/10/20 07:20 Dose: Not Given Documented by: Famotidine (Pepcid) 20 mg IVPUSH Q12H [facility] Last Admin: 06/09/20 22:53 Dose: 20 mg Documented by: Furosemide (Lasix) 40 mg IVPUSH BID [facility] Last Admin: 06/10/20 07:20 Dose: 40 mg Documented by: Ceftriaxone Sodium 1 gm/ (Sodium Chloride) 100 mls @ 200 mls/hr IV Q12H [facility] Last Admin: 06/10/20 02:07 Dose: 200 mls/hr Documented by: Metronidazole 500 mg/ Premix 100 mls @ 100 mls/hr IV Q8H [facility] Last Admin: 06/10/20 07:20 Dose: 100 mls/hr Documented by: Non-Formulary Medication (Nf Drug) each SUBCUT ASDIRECTED [facility] Ondansetron HCl (Zofran) 4 mg IVPUSH Q6H PRN PRN Reason: Nausea/Vomiting Last Admin: 06/10/20 02:42 Dose: 4 mg Documented by: Pantoprazole Sodium (Protonix Iv) 40 mg IVPUSH Q12H [facility] Last Admin: 06/09/20 22:53 Dose: 40 mg Documented by: Potassium Chloride (Klor-Con M20) 20 meq PO BID [facility] Last Admin: 06/10/20 07:19 Dose: 20 meq Documented by: Senna/Docusate Sodium (Senna Plus) 1 tab PO BID [facility] Last Admin: 06/10/20 07:19 Dose: 1 tab Documented by: Sodium Chloride (Saline Flush) 10 ml FLUSH ASDIRECTED PRN PRN Reason: Keep Vein Open Last Admin: 06/09/20 22:55 Dose: 10 ml Documented by: Sodium Chloride (Saline Flush) 10 ml FLUSH Q12HR [facility] Last Admin: 06/10/20 07:16 Dose: 10 ml Documented by: Tamsulosin HCl (Flomax) 0.4 mg PO BEDTIME [facility] Last Admin: 06/09/20 19:39 Dose: 0.4 mg Documented by: Temazepam (Restoril) 15 mg PO DAILY@2000 PRN PRN Reason: Insomnia Last Admin: 06/10/20 02:42 Dose: 15 mg Documented by: Trimethoprim/Sulfamethoxazole (Septra Ds) 1 tab PO BID [facility] Last Admin: 06/10/20 07:19 Dose: 1 tab Documented by: Discontinued Medications Ceftriaxone Sodium (Rocephin) Confirm Administered Dose 1 gm .ROUTE .STK-MED ONE Stop: 06/09/20 13:17 Last Admin: 06/09/20 14:13 Dose: Not Given Documented by: Diatrizoate Meglum/Diatrizoate Sod (Gastrografin 37%) 30 ml PO ONETIME ONE Stop: 06/09/20 10:46 Last Admin: 06/09/20 11:18 Dose: 30 ml Documented by: Famotidine (Pepcid) 40 mg IVPUSH ONETIME ONE Stop: 06/08/20 10:14 Last Admin: 06/08/20 10:18 Dose: 40 mg Documented by: Famotidine (Pepcid) 20 mg IVPUSH Q12H [facility] Ceftriaxone Sodium 1 gm/ (Sodium Chloride) 100 mls @ 200 mls/hr IV Q12H [facility] Metronidazole 500 mg/ Premix 100 mls @ 100 mls/hr IV Q8H [facility] Iopamidol (Isovue-300 (61%)) 100 ml IVPUSH ONETIME ONE Stop: 06/09/20 10:46 Last Admin: 06/09/20 11:18 Dose: 100 ml Documented by: Magnesium Citrate (Citrate Of Magnesia) 0 ml PO ONETIME ONE Stop: 06/08/20 11:43 Last Admin: 06/08/20 13:01 Dose: 296 ml Documented by: Magnesium Citrate (Citrate Of Magnesia) 296 ml PO ONETIME ONE Stop: 06/09/20 12:36 Last Admin: 06/09/20 13:12 Dose: 296 ml Documented by: Ondansetron HCl (Zofran) 4 mg IVPUSH ONETIME ONE Stop: 06/08/20 10:14 Last Admin: 06/08/20 10:18 Dose: 4 mg Documented by: Pantoprazole Sodium (Protonix Iv) 40 mg IVPUSH ONETIME ONE Stop: 06/08/20 10:14 Last Admin: 06/08/20 10:18 Dose: 40 mg Documented by: Polyethylene Glycol (Miralax) 17 gm PO ONETIME ONE Stop: 06/08/20 11:43 Last Admin: 06/08/20 13:01 Dose: 17 gm Documented by: Polyethylene Glycol (Miralax) 17 gm PO ONETIME ONE Stop: 06/09/20 12:35 Last Admin: 06/09/20 13:12 Dose: 17 gm Documented by: - Exam Quality Assessment: Reports: DVT Prophylaxis (Eliquis). Denies: Supplemental Oxygen, Central Line/PICC, Urine Catheter General: Reports: Alert, Oriented, Cooperative, No Acute Distress HEENT: Reports: Pupils Equal, Pupils Reactive, EOMI, Mucous Membr. Moist/Pablo, Other (Patient is wearing glasses). Denies: Scleral Icterus Neck: Reports: Supple, Trachea Midline, No JVD, No Thyromegaly, Carotid Bruit (Mild bilateral carotid bruits). Denies: Lymphadenopathy Lungs: Reports: Clear to Auscultation, Normal Respiratory Effort Cardiovascular: Reports: Regular Rate, Regular Rhythm, No Murmurs. Denies: Gallops, Rubs GI/Abdominal Exam: Normal Bowel Sounds, Soft, Non-Tender, No Organomegaly, No Distention, No Abnormal Bruit, No Mass, Other (Obese). No: Guarding (Male) Exam: Deferred Rectal (Males) Exam: Deferred Back Exam: Reports: Normal Inspection, Full Range of Motion. Denies: CVA Tenderness (L), CVA Tenderness (R), Muscle Spasm Extremities: Normal Capillary Refill, Pedal Edema (Improved trace to +1 bilateral pedal/pretibial edema left greater than right), Joint Swelling (Postoperative right kneenormal), Leg Pain (Mild tenderness with range of motion of the right knee secondary to recent surgery), Limited Range of Motion (Right Knee secondary to recent surgery). No: Los's Sign, Increased Warmth, Redness Skin: Reports: Ecchymosis (Mild and forearms bilaterally), Other (Moderate venous stasis dermatitis) Wound/Incisions: Reports: Healing Well, Dressing Dry and Intact, Other (Cut Off still in place) Neurological: Reports: No New Focal Deficit Psy/Mental Status: Reports: Alert, Normal Affect, Normal Mood. Denies: Agitate d, Hallucinations, Withdrawal Symptoms EKG INTERPRETATION EKG Date: 06/10/20 Time: 07:15 Rhythm: NSR Rate (Beats/Min): 81 [place]: Normal (Left cardiac axis) P-Wave: Enlarged (Mild diffuse biphasic P waves with extreme poor R-wave progres naeem in anterior leads) QRS: Normal (0.08 seconds representing repolarization changes with T-wave inversion in lead V1) ST-T: Normal (As above) QT: Prolonged (404/469 ms) GA/PQ Interval: 0.21 seconds representing a first degree AV block Comparison: NA - No Prior EKG EKG Interpretation Comments: 1. No acute ischemic changes 2. First-degree AV block 3. Repolarization changes 4. Left atrial enlargement 5. Borderline prolonged QT
--- NOTE | 2020-06-10 10:28 | PCM.SN.2 ---
- Free Text/Narrative Note: Correction on discharge instructions on recent discharge summary. Instruction should read "Discontinue Celebrex...."
== END 2020-06-10 10:45 | disposition home health service (06) ==
LOC: LL.ED 09:58 → UNDOADMOB 11:22 → LL.MS 11:22
PROVIDERS: ADMIT Family Medicine; ATTEND Family Medicine
DX: K91.89 Other postprocedural complications and disorders of digestive system (principal); K56.7 Ileus, unspecified; E11.9 Type 2 diabetes mellitus without complications; E78.5 Hyperlipidemia, unspecified; M19.90 Unspecified osteoarthritis, unspecified site; Z71.6 Tobacco abuse counseling; D64.89 Other specified anemias; E80.6 Other disorders of bilirubin metabolism; I50.9 Heart failure, unspecified; I44.0 Atrioventricular block, first degree; N28.89 Other specified disorders of kidney and ureter; K59.09 Other constipation; F17.220 Nicotine dependence, chewing tobacco, uncomplicated; Z79.899 Other long term (current) drug therapy
CPT/HCPCS: 36415; 74022; 74177; 80048; 80053; 81001; 82150; 82247; 82248; 82272; 82550; 82553; 82607; 82728; 83036; 83540; 83550; 83605; 83690; 83735; 83880; 84484; 84550; 85025; 85610; 85730; 87086; 93005; 96365; 96366; 96367; 96374; 96375; 96376; 99285-25; A9270-GY; C9113; G0378; J0696; J1940; J2405; J3490; J7050; Q9963; Q9967

== ENCOUNTER 2020-08-24 06:17 | Inpatient (IN) | payer MEDICARE, BC, OTHER ==
[2020-08-24] MEDS ORDERED: GI Cocktail Oral Solution 30 ML PO ONE (06:58)
--- NOTE | 2020-08-24 07:18 | EDM.PDOC ---
ED HPI GENERAL MEDICAL PROBLEM - General Chief Complaint: Back Pain or Injury Stated Complaint: back pain, heartburn Time Seen by Provider: 08/24/20 06:45 Source of Information: Reports: Patient History Limitations: Reports: No Limitations - History of Present Illness INITIAL COMMENTS - FREE TEXT/NARRATIVE: Patient comes to ER by private vehicle for complaint of heartburn. Describes substernal pain that radiated to back. Took Tums, thinks that made pain worse. Had Covid several weeks ago. Told be his doctor last week he was in the clear. He felt he was recovering well from it. No other accompanying symptoms per patient. He does not recall any SOB/nausea/sweating with the pain. No palpitations. Pain did not radiate anywhere. It is quite a bit better at this time compared to when it woke him up around 5am. No history of GA/CAD. Recent knee surgery/carpal tunnel release over summer. Sternum Pain Score (Numeric/FACES): 7 - Related Data Allergies Allergy/AdvReac Type Severity Reaction Status Date / Time aspirin AdvReac Abdominal Verified 06/08/20 11:07 Pain Penicillins AdvReac Giddiness Verified 06/08/20 11:07 Home Meds: Home Meds Tamsulosin HCl [Flomax] 0.4 mg PO BEDTIME 04/16/20 [History] Acetaminophen [Tylenol] 650 mg PO Q4H PRN tablet 06/10/20 [Rx] Non-Formulary Medication [NF Drug] 1 injection SUBCUT WEEKLY 08/24/20 [History] Past Medical History HEENT History: Reports: Allergic Rhinitis, Hard of Hearing, Impaired Vision, Other (See Below) Other HEENT History: He wears glasses. Severe bilateral presbycusis with suboptimal bilateral hearing aide therapy. Cardiovascular History: Reports: High Cholesterol Respiratory History: Reports: Intubation, Previous Gastrointestinal History: Reports: Chronic Constipation, Hemorrhoids Genitourinary History: Reports: BPH Musculoskeletal History: Reports: Arthritis, Back Pain, Chronic, Fracture, Os teoarthritis, Other (See Below) Other Musculoskeletal History: Phalangeal fracture of digit #1 of the left foot in his 30s. Previous left ankle fracturedate unknown. 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 Neurological History: Reports: None Psychiatric History: Reports: None Endocrine/Metabolic History: Reports: Diabetes, Type II, Obesity/BMI 30+, Other (See Below) Other Endocrine/Metabolic History: Prediabetes with no current therapy. Hematologic History: Reports: None Immunologic History: Reports: None Oncologic (Cancer) History: Reports: None Dermatologic History: Reports: Venous Stasis Dermatitis - Infectious Disease History Infectious Disease History: Reports: Chicken Pox, Measles, Mumps - Past Surgical History Head Surgeries/Procedures: Reports: None HEENT Surgical History: Reports: Oral Surgery, Other (See Below) Other HEENT Surgeries/Procedures: Complete teeth extraction. Cardiovascular Surgical History: Reports: None Respiratory Surgical History: Reports: None GI Surgical History: Reports: Colonoscopy, Other (See Below) Other GI Surgeries/Procedures: Colonoscopy on 03/11/12. Male Surgical History: Reports: None Endocrine Surgical History: Reports: None Neurological Surgical History: Reports: None Musculoskeletal Surgical History: Reports: None, Joint Replacement, Knee Replacement, Other (See Below) Other Musculoskeletal Surgeries/Procedures:: Right total knee arthroplasty on 06/04/20. Oncologic Surgical History: Reports: None Dermatological Surgical History: Reports: None - Past Imaging History Past Imaging History: Reports: DEXA Scan (10/12/12.), MRI (Lumbar spine on 10/12/12.) Social & Family History - Family History HEENT: Reports: None Cardiac: Reports: Blood Clots/VTE/DVT, CAD, GA, Other (See Below) Other Cardiac Family History: Father with fatal GA in his 80s. Mother with fatal DVT versus PE likely secondary to her breast cancer at age 75. Respiratory: Reports: PE, Other (See Below) Other Respiratory Family Hisory: Mother with probable fatal PE as above. GI: Reports: None : Reports: None OBGYN: Reports: None Musculoskeletal: Reports: None Neurological: Reports: None, Other (See Below) Other Neurological Family History: Organic brain syndrome in maternal aunt and maternal uncle. Psychiatric: Reports: None Endocrine/Metabolic: Reports: Diabetes, type II, IDDM, Other (See Below) Other Endocrine/Metabolic Family History: Father with IDDM. Hematologic: Reports: None Immunologic: Reports: None Dermatologic: Reports: None Oncologic: Reports: Breast, Other (See Below) Other Oncologic Family History: Mother with breast cancer at about age 75. Maternal aunt with fatal breast cancer in her 70s. - Caffeine Use Caffeine Use: Reports: Coffee, Soda - Living Situation & Occupation Living situation: Reports: (1999, stepchildren), with Family () Occupation: Employed ([employer]) ED ROS GENERAL - Review of Systems Review Of Systems: See Below Constitutional: Reports: No Symptoms HEENT: Denies: Ear Discharge, Ear Pain, Eye Discharge, Eye Pain, Rhinitis, Sinus Problem, Throat Pain, Throat Swelling, Vertigo, Vision Change Respiratory: Reports: No Symptoms Cardiovascular: Reports: Chest Pain. Denies: Dyspnea on Exertion, Lightheadedness, Orthopnea, Palpitations, Syncope GI/Abdominal: Reports: No Symptoms : Reports: No Symptoms Musculoskeletal: Reports: Other (No acute changes from baseline) Skin: Reports: No Symptoms Neurological: Reports: No Symptoms Psychiatric: Reports: No Symptoms ED EXAM, GENERAL - Physical Exam Exam: See Below Exam Limited By: No Limitations General Appearance: Alert, No Apparent Distress, Obese Eye Exam: Bilateral Eye: EOMI, PERRL Ears: Normal External Exam, Hearing Loss Nose: No: Nasal Deformity, Nasal Swelling, Nasal Drainage Throat/Mouth: Normal Lips, Normal Voice, No Airway Compromise Head: Atraumatic, Normocephalic Neck: Supple, Full Range of Motion Respiratory/Chest: No Respiratory Distress, Lungs Clear, Normal Breath Sounds, No Accessory Muscle Use, Chest Non-Tender Cardiovascular: Regular Rate, Rhythm, No Murmur GI/Abdominal: Normal Bowel Sounds, Soft, Non-Tender, No Distention (Male) Exam: Deferred Rectal (Males) Exam: Deferred Back Exam: Normal Inspection. No: CVA Tenderness (L), CVA Tenderness (R), Muscle Spasm Extremities: Normal Inspection, Normal Capillary Refill Neurological: Alert, Oriented, CN II-XII Intact, Normal Cognition, Other (able to walk into ER) Psychiatric: Normal Affect, Normal Mood Skin Exam: Warm, Dry, Intact, Normal Color EKG INTERPRETATION EKG Date: 08/24/20 Time: 07:03 Rhythm: Other (1st degee AV block) Rate (Beats/Min): 70 [place]: Normal P-Wave: Present QRS: Other (low voltage) ST-T: Other (mild t wave abnormality laeral leads) QT: Prolonged Comparison: No Change Course - Vital Signs Last Recorded V/S: Last Vital Signs Temp 36.3 C 08/24/20 08:52 Pulse 66 08/24/20 08:52 Resp 16 10/02/20 08:52 BP 137/64 08/24/20 08:52 Pulse Ox 98 08/24/20 08:52 - Orders/Labs/Meds Orders: Active Orders 24 hr Category Date Time Status EKG Documentation Completion [RC] ASDIRECTED Care 08/24/20 06:28 Active Chest 1V Frontal [CR] Stat Exams 08/24/20 06:54 Taken PE Chest [Ang Chest] [CT] Stat Exams 08/24/20 07:50 Taken Medication Orders Acetaminophen (Tylenol) 650 mg PO Q4H PRN PRN Reason: Pain Apixaban (Eliquis) 10 mg PO BID PAM Last Admin: 08/24/20 12:24 Dose: 10 mg Documented by: COXTAM Potassium Chloride 10 meq/ (Premix) 50 mls @ 50 mls/hr IV Q1H PAM Stop: 08/24/20 15:59 Tamsulosin HCl (Flomax) 0.4 mg PO BEDTIME PAM Labs: Laboratory Tests 08/24/20 08/24/20 08/24/20 Range/Units 06:40 06:40 06:40 WBC 4.7 (4.0-10.2) K/uL RBC 4.45 (4.33-5.41) M/uL Hgb 13.2 (13.1-16.8) g/dL Hct 41.2 (39.0-49.0) % MCV 92.6 D (84.0-98.0) fL MCH 29.7 (28.2-33.3) pg MCHC 32.0 (31.7-36.0) g/dL RDW 13.3 (11.2-14.1) % Plt Count 292 D (150-350) K/uL Neut % (Auto) 66.4 (45.0-80.0) % Lymph % (Auto) 22.2 (10.0-50.0) % [place] % (Auto) 9.5 (2.0-14.0) % Eos % (Auto) 1.7 (0.0-5.0) % Baso % (Auto) 0.2 (0.0-2.0) % Neut # (Auto) 3.13 (1.40-7.00) K/uL Lymph # (Auto) 1.05 (0.50-3.50) K/uL [place] # (Auto) 0.45 (0.00-1.00) K/uL Eos # (Auto) 0.08 (0.00-0.50) K/uL Baso # (Auto) 0.01 (0.00-0.20) K/uL D-Dimer, Quantitative 2870 H (0-400) ng/mL Sodium 141 (136-145) mmol/L Potassium 2.9 L* (3.5-5.1) mmol/L Chloride 106 (98-107) mmol/L Carbon Dioxide 27.2 (21.0-32.0) mmol/L BUN 10 (7-18) mg/dL Creatinine 0.61 (0.51-1.17) mg/dL Est Cr Clr Drug Dosing 113.08 mL/min Estimated GFR (MDRD) > 60 mL/min Glucose 172 H (74-106) mg/dL Calcium 8.7 (8.5-10.1) mg/dL Magnesium 1.8 (1.8-2.4) mg/dL Total Bilirubin 0.6 (0.2-1.0) mg/dL AST 41 H (15-37) U/L ALT 46 (12-78) U/L Alkaline Phosphatase 45 L (46-116) IU/L Troponin I 0.000 (0.000-0.056) ng/mL NT-Pro-B Natriuret Pep 114 (0-125) pg/mL Total Protein 6.6 (6.4-8.2) g/dL Albumin 2.9 L (3.4-5.0) g/dL Amylase (25-115) U/L Lipase (73-393) U/L 08/24/20 Range/Units 06:40 WBC (4.0-10.2) K/uL RBC (4.33-5.41) M/uL Hgb (13.1-16.8) g/dL Hct (39.0-49.0) % MCV (84.0-98.0) fL MCH (28.2-33.3) pg MCHC (31.7-36.0) g/dL RDW (11.2-14.1) % Plt Count (150-350) K/uL Neut % (Auto) (45.0-80.0) % Lymph % (Auto) (10.0-50.0) % [place] % (Auto) (2.0-14.0) % Eos % (Auto) (0.0-5.0) % Baso % (Auto) (0.0-2.0) % Neut # (Auto) (1.40-7.00) K/uL Lymph # (Auto) (0.50-3.50) K/uL [place] # (Auto) (0.00-1.00) K/uL Eos # (Auto) (0.00-0.50) K/uL Baso # (Auto) (0.00-0.20) K/uL D-Dimer, Quantitative (0-400) ng/mL Sodium (136-145) mmol/L Potassium (3.5-5.1) mmol/L Chloride (98-107) mmol/L Carbon Dioxide (21.0-32.0) mmol/L BUN (7-18) mg/dL Creatinine (0.51-1.17) mg/dL Est Cr Clr Drug Dosing mL/min Estimated GFR (MDRD) mL/min Glucose (74-106) mg/dL Calcium (8.5-10.1) mg/dL Magnesium (1.8-2.4) mg/dL Total Bilirubin (0.2-1.0) mg/dL AST (15-37) U/L ALT (12-78) U/L Alkaline Phosphatase (46-116) IU/L Troponin I (0.000-0.056) ng/mL NT-Pro-B Natriuret Pep (0-125) pg/mL Total Protein (6.4-8.2) g/dL Albumin (3.4-5.0) g/dL Amylase 33 (25-115) U/L Lipase 124 (73-393) U/L Meds: Medications Generic Name Dose Route Start Last Admin Trade Name Freq PRN Reason Stop Dose Admin Acetaminophen 650 mg 08/24/20 12:54 Tylenol PO Q4H PRN Pain Apixaban 10 mg 08/24/20 12:15 08/24/20 12:24 Eliquis PO 10 mg BID PAM Administration Potassium Chloride 10 meq/ 50 mls @ 50 mls/hr 10/02/20 13:00 Premix IV 08/24/20 15:59 Q1H PAM Tamsulosin HCl 0.4 mg 08/24/20 20:00 Flomax PO BEDTIME PAM Discontinued Medications Generic Name Dose Route Start Last Admin Trade Name Linda PRN Reason Stop Dose Admin Al Hydroxide/Mg Hydroxide 30 ml 08/24/20 06:58 08/24/20 07:19 Gi Cocktail PO 08/24/20 06:59 30 ml ONETIME ONE Administration Iopamidol 100 ml 08/24/20 07:57 08/24/20 09:01 Isovue-370 (76%) IVPUSH 08/24/20 07:58 100 ml ONETIME ONE Administration Iopamidol Confirm 08/24/20 08:02 08/24/20 12:04 Isovue-370 (76%) Administered 08/24/20 08:03 Not Given Dose 100 ml .ROUTE .STK-MED ONE Potassium Chloride 40 meq 08/24/20 08:01 08/24/20 08:10 Klor-Con M20 PO 08/24/20 08:02 40 meq ONETIME ONE Administration Potassium Chloride 20 meq 08/24/20 11:08 08/24/20 12:24 Klor-Con M20 PO 08/24/20 11:09 20 meq ONETIME ONE Administration - Re-Assessments/Exams Free Text/Narrative Re-Assessment/Exam: 08/24/20 13:03 Noted to have significantly low potassium. CT performed due to elevated DDImer and + for PE. Admitted inpatient for potassium correction/anticoagulation initiation/weakness Departure - Departure Time of Disposition: 08:30 Disposition: Admitted As Inpatient 64 Condition: Good Clinical Impression: Hypokalemia, COVID-19 virus infection Pulmonary embolism Qualifiers: Pulmonary embolism type: unspecified Chronicity: acute Acute cor pulmonale presence: unspecified Qualified Code(s): I26.99 - Other pulmonary embolism without acute cor pulmonale - Discharge Information *PRESCRIPTION DRUG MONITORING PROGRAM REVIEWED*: Not Applicable *COPY OF PRESCRIPTION DRUG MONITORING REPORT IN PATIENT BRIDGET: Not Applicable Sepsis Event Note (ED) - Evaluation Sepsis Screening Result: No Definite Risk - Focused Exam Vital Signs: Vital Signs Temp Pulse Resp BP Pulse Ox 08/24/20 08:52 36.3 C 66 16 137/64 98 08/24/20 08:00 66 18 134/60 95 08/24/20 07:23 36.3 C 69 18 123/61 98 08/24/20 06:34 36.8 C 82 12 139/64 92 L - Problem List & Annotations (1) Chest pain SNOMED Code(s): 18373012 Code(s): R07.9 - CHEST PAIN, UNSPECIFIED Status: Acute Priority: High Current Visit: Yes Annotation/Comment:: Presenting complaint of chest pain. Noted to have PE which may be contributor to pain complaint. Low K. Troponin and EKG negative for acute ischemia. (2) Hypokalemia SNOMED Code(s): 66681035 Code(s): E87.6 - HYPOKALEMIA Status: Acute Priority: High Current Visit: Yes Annotation/Comment:: K level 2.9 Patient not wanting to swallow oral K pills so will receive IV replacement. Recheck level tonight and tomorrow. (3) Pulmonary embolism SNOMED Code(s): 44912067 Code(s): I26.99 - OTHER PULMONARY EMBOLISM WITHOUT ACUTE COR PULMONALE Status: Acute Priority: High Current Visit: Yes Annotation/Comment:: PE noted on CT. Initiation of Eliquis. Vital signs stable. O2 sats on room air in low 90s. No acute complaint of SOB. May be contributor to this morning's chest pain complaint. Qualifiers: Pulmonary embolism type: unspecified Chronicity: acute Acute cor pulmonale presence: unspecified Qualified Code(s): I26.99 - Other pulmonary embolism without acute cor pulmonale (4) COVID-19 virus infection SNOMED Code(s): 881131696 Code(s): U07.1 - COVID-19 Status: Acute Priority: Medium Current Visit: Yes Annotation/Comment:: Recent Covid-19 infection approx 2 weeks ago. (5) Weakness SNOMED Code(s): 43462814 Code(s): R53.1 - WEAKNESS Status: Acute Priority: Medium Current Visit: Yes Annotation/Comment:: Generalized weakness since Covid 19 infection. PT/OT to see patient. Low potassium may be contributing. (6) BPH (benign prostatic hyperplasia) SNOMED Code(s): 400186970 Code(s): N40.0 - BENIGN PROSTATIC HYPERPLASIA WITHOUT LOWER URINRY TRACT SYMP Status: Chronic Priority: Low Current Visit: No Annotation/Comment:: under therapy. (7) Obesities, morbid SNOMED Code(s): 908069291 Code(s): E66.01 - MORBID (SEVERE) OBESITY DUE TO EXCESS CALORIES Status: Acute Priority: Low Current Visit: No Annotation/Comment:: Has lost weight due to poorer appetite since Covid infection (8) Constipation SNOMED Code(s): 95013921 Code(s): K59.00 - CONSTIPATION, UNSPECIFIED Status: Chronic Priority: Low Current Visit: No Annotation/Comment:: Stable Qualifiers: Constipation type: slow transit constipation Qualified Code(s): K59.01 - Slow transit constipation (9) Hyperlipidemia SNOMED Code(s): 50640554 Code(s): E78.5 - HYPERLIPIDEMIA, UNSPECIFIED Status: Chronic Priority: Medium Current Visit: No Annotation/Comment:: Follow up with PCP Qualifiers: Hyperlipidemia type: unspecified Qualified Code(s): E78.5 - Hyperlipidemia, unspecified (10) Osteoarthritis SNOMED Code(s): 462067539 Code(s): M19.90 - UNSPECIFIED OSTEOARTHRITIS, UNSPECIFIED SITE Status: Chronic Priority: Medium Current Visit: No Annotation/Comment:: Multiple joint replacements. Chronic back pain. Recent right carpal tunnel release and elbow surgery. Qualifiers: Osteoarthritis location: multiple joints Osteoarthritis type: primary Qualified Code(s): M89.49 - Other hypertrophic osteoarthropathy, multiple sites (11) Diabetes mellitus SNOMED Code(s): 16625976 Code(s): E11.9 - TYPE 2 DIABETES MELLITUS WITHOUT COMPLICATIONS Status: Chronic Priority: Medium Current Visit: No Annotation/Comment:: Glycosylated hemoglobin 6.9% on 06/09. Under care of PCP. Qualifiers: Diabetes mellitus type: type 2 Diabetes mellitus long term care pharmacist insulin use: without long term care pharmacist use Diabetes mellitus complication status: without compli cation Qualified Code(s): E11.9 - Type 2 diabetes mellitus without complications - My Orders Last 24 Hours: My Active Orders 08/24/20 06:28 EKG Documentation Completion [RC] ASDIRECTED 08/24/20 06:54 Chest 1V Frontal [CR] Stat 08/24/20 07:50 PE Chest [Ang Chest] [CT] Stat - Assessment/Plan Admission H&P: Please use this note as an admission H&P Last 24 Hours: My Active Orders 08/24/20 06:28 EKG Documentation Completion [RC] ASDIRECTED 08/24/20 06:54 Chest 1V Frontal [CR] Stat 08/24/20 07:50 PE Chest [Ang Chest] [CT] Stat Assessment:: as above Plan: as above. Anticipate 3-4 day stay while potassium replaced/patient able to maintain normal level and weakness assessed. Can be discharged home once able to participate in ADLs safely and continued on Eliquis with close follow up by PCP. to assume care in AM
[2020-08-24 07:42] LABS: CHLORIDE,CL 106 mmol/L (98-107); SODIUM,NA 141 mmol/L (136-145)
[2020-08-24] MEDS ORDERED: Iopamidol 755 Mg/ML 100 ML Bottle IVPUSH ONE (07:57)
[2020-08-24] MEDS ORDERED: Potassium Chloride 20 MEQ Tab.ER PO ONE ×2 (08:01→11:08)
[2020-08-24] MEDS ORDERED: Iopamidol 755 Mg/ML 100 ML Bottle ONE (08:02)
[2020-08-24] MEDS: Apixaban 5 MG Tab PO SCH ×2 (12:24→17:23)
[2020-08-24] MEDS ORDERED: Acetaminophen 325 MG Tab PO PRN (12:54)
[2020-08-24] MEDS ORDERED: Sodium Chloride 0.9% 500 ML IV ONE (14:09)
[2020-08-24] MEDS: Potassium Chloride Riders 10 MEQ in Premix Bag 1 BAG IV SCH ×3 (14:12→17:23)
--- NOTE | 2020-08-24 15:04 | PCM.SN.2 ---
- Free Text/Narrative Note: Radiology report: PE within segmental and subsegmental lingular pulmonary arteries. Prominent right hilar lymph node showed have follow up in 2-3 months to make certain it is stable/resolves.
[2020-08-24] MEDS: Tamsulosin 0.4 MG Cap.ER PO SCH (20:10)
[2020-08-24] MEDS ORDERED: Potassium Chloride Riders 10 MEQ in Premix Bag 1 BAG IV ONE (22:30)
[2020-08-25] MEDS: Apixaban 5 MG Tab PO SCH ×2 (07:37→17:52)
[2020-08-25 07:59] LABS: CHLORIDE,CL 108 mmol/L (98-107); SODIUM,NA 143 mmol/L (136-145)
--- NOTE | 2020-08-25 08:37 | PCM.PN ---
- General Info Date of Service: 08/25/20 Subjective Update: Still feels SOB and weak - Review of Systems General: Reports: Weakness Pulmonary: Reports: Shortness of Breath Cardiovascular: Reports: No Symptoms Gastrointestinal: Reports: No Symptoms - Patient Data Vitals - Most Recent: Last Vital Signs Temp 97.6 F 08/25/20 07:38 Pulse 68 08/25/20 07:38 Resp 20 08/25/20 07:38 BP 133/74 08/25/20 07:38 Pulse Ox 93 L 08/25/20 07:38 Weight - Most Recent: 274 lb 14.4 oz I&O - Last 24 Hours: Intake & Output 08/24/20 08/25/20 08/25/20 18:59 02:59 10:59 Intake Total 650 250 Balance 650 250 Lab Results Last 24 Hours: Laboratory Results - last 24 hr 08/24/20 08/25/20 08/25/20 Range/Units 18:41 07:15 07:15 WBC 4.2 (4.0-10.2) K/uL RBC 4.25 L (4.33-5.41) M/uL Hgb 12.6 L (13.1-16.8) g/dL Hct 39.7 (39.0-49.0) % MCV 93.4 (84.0-98.0) fL MCH 29.6 (28.2-33.3) pg MCHC 31.7 (31.7-36.0) g/dL RDW 13.2 (11.2-14.1) % Plt Count 311 (150-350) K/uL Neut % (Auto) 57.4 (45.0-80.0) % Lymph % (Auto) 25.3 (10.0-50.0) % [place] % (Auto) 14.2 H (2.0-14.0) % Eos % (Auto) 2.9 (0.0-5.0) % Baso % (Auto) 0.2 (0.0-2.0) % Neut # (Auto) 2.38 (1.40-7.00) K/uL Lymph # (Auto) 1.05 (0.50-3.50) K/uL [place] # (Auto) 0.59 (0.00-1.00) K/uL Eos # (Auto) 0.12 (0.00-0.50) K/uL Baso # (Auto) 0.01 (0.00-0.20) K/uL Sodium 143 (136-145) mmol/L Potassium 3.7 4.0 (3.5-5.1) mmol/L Chloride 108 H (98-107) mmol/L Carbon Dioxide 27.2 (21.0-32.0) mmol/L BUN 9 (7-18) mg/dL Creatinine 0.61 (0.51-1.17) mg/dL Est Cr Clr Drug Dosing 113.08 mL/min Estimated GFR (MDRD) > 60 mL/min Glucose 125 H (74-106) mg/dL Calcium 8.6 (8.5-10.1) mg/dL Med Orders - Current: Current Medications Acetaminophen (Tylenol) 650 mg PO Q4H PRN PRN Reason: Pain Apixaban (Eliquis) 10 mg PO BID [facility] Last Admin: 08/25/20 07:37 Dose: 10 mg Documented by: Tamsulosin HCl (Flomax) 0.4 mg PO BEDTIME [facility] Last Admin: 08/24/20 20:10 Dose: 0.4 mg Documented by: Discontinued Medications Al Hydroxide/Mg Hydroxide (Gi Cocktail) 30 ml PO ONETIME ONE Stop: 08/24/20 06:59 Last Admin: 08/24/20 07:19 Dose: 30 ml Documented by: Potassium Chloride 10 meq/ (Premix) 50 mls @ 50 mls/hr IV Q1H PAM Stop: 08/24/20 15:59 Last Admin: 08/24/20 17:23 Dose: 50 mls/hr Documented by: Sodium Chloride (Normal Saline) 500 mls @ 75 mls/hr IV ONETIME ONE Stop: 08/24/20 20:48 Last Admin: 08/24/20 14:18 Dose: 75 mls/hr Documented by: Potassium Chloride 10 meq/ (Premix) 50 mls @ 50 mls/hr IV ONETIME ONE Stop: 08/24/20 23:29 Last Admin: 08/25/20 06:07 Dose: 50 mls/hr Documented by: Iopamidol (Isovue-370 (76%)) 100 ml IVPUSH ONETIME ONE Stop: 08/24/20 07:58 Last Admin: 08/24/20 09:01 Dose: 100 ml Documented by: Iopamidol (Isovue-370 (76%)) Confirm Administered Dose 100 ml .ROUTE .STK-MED ONE Stop: 08/24/20 08:03 Last Admin: 08/24/20 12:04 Dose: Not Given Documented by: Potassium Chloride (Klor-Con M20) 40 meq PO ONETIME ONE Stop: 08/24/20 08:02 Last Admin: 08/24/20 08:10 Dose: 40 meq Documented by: Potassium Chloride (Klor-Con M20) 20 meq PO ONETIME ONE Stop: 08/24/20 11:09 Last Admin: 08/24/20 12:24 Dose: 20 meq Documented by: - Exam Quality Assessment: Supplemental Oxygen Lungs: Decreased Breath Sounds Cardiovascular: Regular Rate Sepsis Event Note - Evaluation Sepsis Screening Result: No Definite Risk - Focused Exam Vital Signs: Vital Signs Temp Pulse Resp BP Pulse Ox 08/25/20 07:38 97.6 F 68 20 133/74 93 L 08/25/20 02:00 98 F 64 16 96/55 L 94 L - Problem List Review Problem List Initiated/Reviewed/Updated: Yes - Assessment Assessment:: Imp Covid with PE - Plan Plan:: Plan: Continue cares
[2020-08-25] MEDS ORDERED: Docusate Sodium 100 MG Cap PO PRN (19:03)
[2020-08-25] MEDS: Tamsulosin 0.4 MG Cap.ER PO SCH (20:04)
[2020-08-26] MEDS: Apixaban 5 MG Tab PO SCH ×2 (07:28→10:20)
--- NOTE | 2020-08-26 10:05 | PCM.DCSUM1 ---
Discharge Summary - Hospital Course Free Text/Narrative:: Pt admitted with post Covid symptoms and a PE Started on Eliquis 10 mg BID Is doing better and feels well enough to d/c home Diagnosis: Stroke: No - Discharge Data Discharge Date: 08/26/20 Discharge Disposition: Home, Self-Care 01 Condition: Good - Referral to Home Health Primary Care Physician: MILDRED Walsh - Discharge Diagnosis/Problem(s) (1) COVID-19 virus infection SNOMED Code(s): 666075321 ICD Code: U07.1 - COVID-19 Status: Acute Priority: Medium Current Visit: Yes Problem Details: Recent Covid-19 infection approx 2 weeks ago. (2) Pulmonary embolism SNOMED Code(s): 64757910 ICD Code: I26.99 - OTHER PULMONARY EMBOLISM WITHOUT ACUTE COR PULMONALE Status: Acute Priority: High Current Visit: Yes Problem Details: PE noted on CT. Initiation of Eliquis. Vital signs stable. O2 sats on room air in low 90s. No acute complaint of SOB. May be contributor to this morning's chest pain complaint. Qualifiers: Pulmonary embolism type: unspecified Chronicity: acute Acute cor pulmonale presence: unspecified Qualified Code(s): I26.99 - Other pulmonary embolism without acute cor pulmonale - Patient Summary/Data Consults: Consultations 08/24/20 11:23 OT Evaluation and Treatment [CONS] Routine 08/24/20 11:24 PT Evaluation and Treatment [CONS] Routine - Patient Instructions Diet: Usual Diet as Tolerated Showering/Bathing: May Shower Notify Provider of: Increased Pain - Discharge Plan *PRESCRIPTION DRUG MONITORING PROGRAM REVIEWED*: Not Applicable *COPY OF PRESCRIPTION DRUG MONITORING REPORT IN PATIENT BRIDGET: Not Applicable Prescriptions/Med Rec: Apixaban [Eliquis] 10 mg PO BID #20 tablet Home Medications: Home Meds Tamsulosin HCl [Flomax] 0.4 mg PO BEDTIME 04/16/20 [History] Acetaminophen [Tylenol] 650 mg PO Q4H PRN tablet 06/10/20 [Rx] Non-Formulary Medication [NF Drug] 1 injection SUBCUT WEEKLY 08/24/20 [History] Apixaban [Eliquis] 10 mg PO BID #20 tablet 08/26/20 [Rx] Forms: ED Department Discharge Referrals: Tali Nash PA [Primary Care Provider] - - Discharge Summary/Plan Comment DC Time >30 min.: No - Patient Data Vitals - Most Recent: Last Vital Signs Temp 98.2 F 08/26/20 07:26 Pulse 67 08/26/20 07:26 Resp 18 08/26/20 07:26 BP 122/69 08/26/20 07:26 Pulse Ox 95 08/26/20 07:26 Weight - Most Recent: 274 lb 14.4 oz I&O - Last 24 hours: Intake & Output 08/25/20 08/26/20 08/26/20 18:59 02:59 10:59 Intake Total 600 150 Balance 600 150 Med Orders - Current: Current Medications Acetaminophen (Tylenol) 650 mg PO Q4H PRN PRN Reason: Pain Apixaban (Eliquis) 10 mg PO BID PAM Last Admin: 08/26/20 07:28 Dose: 10 mg Documented by: Docusate Sodium (Colace) 200 mg PO DAILY PRN PRN Reason: Constipation Last Admin: 08/25/20 20:04 Dose: 200 mg Documented by: Tamsulosin HCl (Flomax) 0.4 mg PO BEDTIME PAM Last Admin: 08/25/20 20:04 Dose: 0.4 mg Documented by: Discontinued Medications Al Hydroxide/Mg Hydroxide (Gi Cocktail) 30 ml PO ONETIME ONE Stop: 08/24/20 06:59 Last Admin: 08/24/20 07:19 Dose: 30 ml Documented by: Potassium Chloride 10 meq/ (Premix) 50 mls @ 50 mls/hr IV Q1H PAM Stop: 08/24/20 15:59 Last Admin: 08/24/20 17:23 Dose: 50 mls/hr Documented by: Sodium Chloride (Normal Saline) 500 mls @ 75 mls/hr IV ONETIME ONE Stop: 08/24/20 20:48 Last Admin: 08/24/20 14:18 Dose: 75 mls/hr Documented by: Potassium Chloride 10 meq/ (Premix) 50 mls @ 50 mls/hr IV ONETIME ONE Stop: 08/24/20 23:29 Last Admin: 08/25/20 06:07 Dose: 50 mls/hr Documented by: Iopamidol (Isovue-370 (76%)) 100 ml IVPUSH ONETIME ONE Stop: 08/24/20 07:58 Last Admin: 08/24/20 09:01 Dose: 100 ml Documented by: Iopamidol (Isovue-370 (76%)) Confirm Administered Dose 100 ml .ROUTE .STK-MED ONE Stop: 08/24/20 08:03 Last Admin: 08/24/20 12:04 Dose: Not Given Documented by: Potassium Chloride (Klor-Con M20) 40 meq PO ONETIME ONE Stop: 08/24/20 08:02 Last Admin: 08/24/20 08:10 Dose: 40 meq Documented by: Potassium Chloride (Klor-Con M20) 20 meq PO ONETIME ONE Stop: 08/24/20 11:09 Last Admin: 08/24/20 12:24 Dose: 20 meq Documented by:
== END 2020-08-26 11:15 | disposition home or self-care (01) | DRG 175 ==
LOC: LL.ED 06:17 → UNDOADMIN 11:17 → LL.MS 11:17
PROVIDERS: ADMIT Emergency Medicine; ATTEND Family Medicine
DX: I26.99 Other pulmonary embolism without acute cor pulmonale (principal); U07.1 COVID-19; E87.6 Hypokalemia; R53.1 Weakness; H91.90 Unspecified hearing loss, unspecified ear; H54.7 Unspecified visual loss; J30.9 Allergic rhinitis, unspecified; H91.13 Presbycusis, bilateral; E78.00 Pure hypercholesterolemia, unspecified; N40.0 Benign prostatic hyperplasia without lower urinary tract symptoms; M19.90 Unspecified osteoarthritis, unspecified site; Z88.8 Allergy status to other drugs, medicaments and biological substances; G89.29 Other chronic pain; M54.9 Dorsalgia, unspecified; H91.93 Unspecified hearing loss, bilateral; M51.16 Intervertebral disc disorders with radiculopathy, lumbar region; E11.9 Type 2 diabetes mellitus without complications; E66.9 Obesity, unspecified; I87.2 Venous insufficiency (chronic) (peripheral); Z98.890 Other specified postprocedural states; Z96.651 Presence of right artificial knee joint; E66.01 Morbid (severe) obesity due to excess calories; K59.01 Slow transit constipation; E78.5 Hyperlipidemia, unspecified; M89.49 Other hypertrophic osteoarthropathy, multiple sites; Z79.899 Other long term (current) drug therapy; Z79.01 Long term (current) use of anticoagulants; Z88.6 Allergy status to analgesic agent; Z88.0 Allergy status to penicillin
CPT/HCPCS: 36415; 71045; 71275; 80048; 80053; 82150; 83690; 83735; 83880; 84132; 84484; 85025; 85379; 93005; 93010; 97165-GO; 97535-GO; 99222; 99232; 99238; 99285-25; A9270-GY; J3480; J7040; Q9967

== ENCOUNTER 2022-03-13 08:32 | Day surgery (SDC) | payer MEDICARE, BC ==
[~2022-03-13 08:32] MED LIST: Lactated Ringers 1,000 ML IV SCH; Midazolam 1 MG/ML 2 ML SDV ONE; Propofol 200 MG/20 ML SDV ONE; Sodium Chloride 0.9% 10 ML Syringe FLUSH PRN
[2022-03-13] MEDS ORDERED: Midazolam 1 MG/ML 2 ML SDV ONE (10:03)
[2022-03-13] MEDS ORDERED: Propofol 200 MG/20 ML SDV ONE (10:03)
== END 2022-03-13 11:45 | disposition home or self-care (01) ==
LOC: LL.SDS 08:32
PROVIDERS: ATTEND Surgery
DX: Z12.11 Encounter for screening for malignant neoplasm of colon (principal); D12.0 Benign neoplasm of cecum; K62.1 Rectal polyp; E11.9 Type 2 diabetes mellitus without complications; N40.0 Benign prostatic hyperplasia without lower urinary tract symptoms; E83.42 Hypomagnesemia; E66.09 Other obesity due to excess calories; F17.220 Nicotine dependence, chewing tobacco, uncomplicated; Z98.890 Other specified postprocedural states; Z88.0 Allergy status to penicillin; Z88.8 Allergy status to other drugs, medicaments and biological substances; Z79.899 Other long term (current) drug therapy; Z68.41 Body mass index [BMI] 40.0-44.9, adult
CPT/HCPCS: 45380; J2250; J2704; J7120

== ENCOUNTER 2025-05-11 10:47 | Day surgery (SDC) | payer MEDICARE, BC ==
[2025-05-11] MEDS: Lactated Ringers 1,000 ML IV SCH (10:46)
[~2025-05-11 10:47] MED LIST changes: -Lactated Ringers 1,000 ML IV SCH
[2025-05-11] MEDS ORDERED: Propofol 200 MG/20 ML SDV IV ONE (11:20)
== END 2025-05-11 12:35 | disposition home or self-care (01) ==
LOC: LL.SDS 10:47
PROVIDERS: ATTEND Surgery
DX: Z12.11 Encounter for screening for malignant neoplasm of colon (principal); D12.0 Benign neoplasm of cecum; E11.9 Type 2 diabetes mellitus without complications; E66.813 Obesity, class 3; Z88.8 Allergy status to other drugs, medicaments and biological substances; Z88.0 Allergy status to penicillin; Z91.09 Other allergy status, other than to drugs and biological substances; Z68.30 Body mass index [BMI] 30.0-30.9, adult; Z68.41 Body mass index [BMI] 40.0-44.9, adult; Z79.899 Other long term (current) drug therapy; Z86.0101 Personal history of adenomatous and serrated colon polyps
CPT/HCPCS: 82947; J2250; J2704; J7120